=== PATIENT | male | born 1955 | race Caucasian/White ===

== ENCOUNTER → 2016-12-13 | Day surgery (SDC) | payer OTHER ==
[~2016-12-13] MED LIST: ACETAMINOPHEN/HYDROcodone 325 MG/5 MG TAB ONE; AMAR4TAB PO; BACL10TA PO; BUPIVACAINE/EPINEPHRINE 0.5% 50 ML VIAL ONE; COBA1000 PO; GABA600T PO; HYDR50TA3 PO; LACTATED RINGER'S 1000 ML INJ 1,000 ML ONE; LISI-515 PO; MEPERIDINE HCL 25 MG/ML VIAL ONE; METO50TA PO; MIDAZOLAM HCL 2 MG/2 ML VIAL ONE; MORP1TAB24 PO; NOVO7030P2 SQ; OMEP20CA2 PO; ONDANSETRON HCL 4 MG/2 ML VIAL IV PUSH ONE; PROPOFOL 200 MG/20 ML AMP IV ONE; ceFAZolin INJ 1,000 MG VIAL ONE
--- NOTE | 2016-12-14 10:00 | MP ---
cc: BASSEM GEORGES M.D. DATE OF SURGERY 12/13/2016 PREOPERATIVE DIAGNOSIS Right knee medial meniscus tear. POSTOPERATIVE DIAGNOSIS Right knee medial meniscus tear. PROCEDURE Right knee arthroscopic partial medial meniscectomy. ANESTHESIA General SURGEON Bassem Georges MD MANAGER TRANSITION SURGEON Staff INDICATION Junior Ba is a 61-year-old male with debilitating right knee pain. 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 The options of treatment were thoroughly discussed. A detailed informed consent was obtained. No guarantees were offered. PROCEDURE The patient was brought into the operating room and was placed under general anesthetic. The right lower extremity was prepped and draped in the usual sterile fashion. IV antibiotics were given. Time-out was completed. An inferomedial portal was made with Marcaine. A blunt trocar used to introduce the cannula. The first photograph shows significant chondromalacia of the patellofemoral joint. The second photograph shows the ACL which appeared normal. The third photograph shows some minimal inner edge fraying on the lateral meniscus within the normal limit. The third photograph shows the posterior horn of the lateral meniscus. The fifth photograph shows the displaced posterior horn meniscus tear which was flipped into the notch and a probe is pulling it out, as well as chondromalacia on the medial femoral condyle. We proceeded with an arthroscopic partial medial meniscectomy using a combination of basket forceps and arthroscopic shaver. We used the shaver with the blade 90 degrees to the face of the condyle to smooth unstable cartilage and in a similar fashion went to the patellofemoral joint and trimmed and smoothed the cartilage. Repeat diagnostic arthroscopy revealed no loose bodies. Arthroscopic equipment was removed. Marcaine had been injected about the portals. Steri-Strips applied. Sterile dressing applied. The patient was awoken and returned to the recovery room in stable condition. MD MARIS Christina/CARMINE /12:28 PM /9:54 AM
== END | disposition home or self-care (01) ==
LOC: ESDC 07:47
PROVIDERS: ATTEND Orthopaedic Surgery Sports Medicine
DX: S83.241A Other tear of medial meniscus, current injury, right knee, initial encounter (principal); E11.9 Type 2 diabetes mellitus without complications; Z79.4 Long term (current) use of insulin; M94.261 Chondromalacia, right knee
CPT/HCPCS: 01400; 29881; 82948; J0690; J2175; J2250; J2405; J3010; J7120

== ENCOUNTER 2017-12-30 06:25 | Observation (INO) | payer OTHER ==
[2017-12-30] VITALS (7 sets, daily range): BP systolic 120–182; BP diastolic 69–79; PULSE 90–106; RESP 17–20; TEMP 97.7–98.6; O2SAT 92–97
[~2017-12-30] VITALS: Ht 172.7 cm; Wt 116.5 kg
[~2017-12-30 06:25] MED LIST changes: -ACETAMINOPHEN/HYDROcodone 325 MG/5 MG TAB ONE; -BUPIVACAINE/EPINEPHRINE 0.5% 50 ML VIAL ONE; -LACTATED RINGER'S 1000 ML INJ 1,000 ML ONE; -MEPERIDINE HCL 25 MG/ML VIAL ONE; -MIDAZOLAM HCL 2 MG/2 ML VIAL ONE; -MORP1TAB24 PO; -ONDANSETRON HCL 4 MG/2 ML VIAL IV PUSH ONE; -PROPOFOL 200 MG/20 ML AMP IV ONE; -ceFAZolin INJ 1,000 MG VIAL ONE
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
[2017-12-30 07:32] LABS: AUTOMATED NEUTROPHIL # 7.9 TH/MM3 (1.8-7.7); BASOPHIL % 0.3 % (0.0-2.0); EOSINOPHIL # 0.1 TH/MM3 (0-0.4); EOSINOPHIL % 1.1 % (0.0-4.0); HEMATOCRIT 45.8 % (39.0-51.0); HEMOGLOBIN 15.6 GM/DL (13.0-17.0); LYMPH % 9.9 % (9.0-44.0); LYMPHOCYTE # 0.9 TH/MM3 (1.0-4.8); MEAN CELL VOLUME 82.7 FL (80.0-100.0); MEAN CORPUSCULAR HEMOGLOBIN 28.1 PG (27.0-34.0); MEAN PLATELET VOLUME 8.2 FL (7.0-11.0); MONO % 4.8 % (0.0-8.0); MONOCYTE # 0.5 TH/MM3 (0-0.9); NEUT % 83.9 % (16.0-70.0); PLATELET COUNT 223 TH/MM3 (150-450); RED BLOOD COUNT 5.54 MIL/MM3 (4.50-5.90); WHITE BLOOD COUNT 9.4 TH/MM3 (4.0-11.0)
[2017-12-30 07:43] LABS: INTERNATIONAL NORMALIZED RATIO 1.1 RATIO; PROTHROMBIN TIME - PATIENT 10.7 SEC (9.8-11.6)
[2017-12-30 07:59] LABS: ALBUMIN 3.7 GM/DL (3.4-5.0); ALT (GPT) 28 U/L (12-78); AST (GOT) 22 U/L (15-37); BICARBONATE 27.1 MEQ/L (21.0-32.0); BLOOD UREA NITROGEN 24 MG/DL (7-18); CALCIUM 8.9 MG/DL (8.5-10.1); CHLORIDE 104 MEQ/L (98-107); CREATININE 1.13 MG/DL (0.60-1.30); GLOMERULAR FILTRATION RATE 65 ML/MIN (>89); GLUCOSE,RANDOM 137 MG/DL (74-106); MAGNESIUM 1.9 MG/DL (1.5-2.5); SODIUM (NA) 141 MEQ/L (136-145)
--- NOTE | 2017-12-30 08:01 | RADRPT ---
EXAM DATE: 12/30/2017 7:40 AM EDT AGE/SEX: 62 years / Male INDICATIONS: Abdominal pain. CLINICAL DATA: This is the patient's initial encounter. Patient reports that signs and symptoms have been present for 1 day and indicates a pain score of 4/10. MEDICAL/SURGICAL HISTORY: Cardiovascular disease. Gastroesophageal reflux disease. Hypertensi on. Renal disease, kidney stones, diabetes. Lithotripsy. tumor removed from right kidney. RADIATION DOSE: 32.41 CTDI (mGy) ; Patient body habitus COMPARISON: [facility] [place], CT ABDOMEN & PELVIS W/O CONTRAST, 03/13/2016. . TECHNIQUE: Multiple contiguous axial images were obtained through the abdomen. Images were obtained using multiple row detector helical technique. Using dose reduction techniques, radiation dose was ke pt as low as reasonably achievable to obtain optimal diagnostic quality images. FINDINGS: Noncontrast appearance of the liver within normal limits. 3.1 cm hypodensity seen centrally of the sp beto, previously 2.9 cm. No acute splenic abnormality. Pancreas and left adrenal gland within normal limits. Stable 2.2 cm adenoma of the right adrenal gland. Numerous nonobstructing stones scattered throughout both kidneys ranging in size from 3 to 8 mm. Thes e all appear very similar to the prior study. There is no ureteral calculus or hydronephrosis or hydr oureter on either side. No obstruction or acute inflammatory changes are seen of the gastrointestinal tract. No free fluid or free air. No lymphadenopathy. CONCLUSION: 1. Numerous scattered nonobstructing stones of both kidneys without appreciable change. No evidence of acute obstructive uropathy. 2. The nonspecific hypodensity of the spleen has been present for many years and is presumably benig n. It is a couple millimeters larger since 2016. 3. Stable right adrenal adenoma. Electronically signed by: Aaron Fernandez MD 12/30/2017 8:00 AM EDT
[2017-12-30 08:02] LABS: ALKALINE PHOSPHATASE 88 U/L (45-117); TOTAL BILIRUBIN ADULT 0.5 MG/DL (0.2-1.0); TOTAL PROTEIN 7.1 GM/DL (6.4-8.2); TROPONIN I LESS THAN 0.02 NG/ML (0.02-0.05)
--- NOTE | 2017-12-30 08:06 | RADRPT ---
EXAM DATE: 12/30/2017 7:59 AM EDT AGE/SEX: 62 years / Male INDICATIONS: Pelvic pain after moving a pool table last night. CLINICAL DATA: This is the patient's initial encounter. Patient reports that signs and symptoms have been present for 1 day and indicates a pain score of 8/10. MEDICAL/SURGICAL HISTORY: None. None. COMPARISON: No prior [facility] exams available for comparison. FINDINGS: Examination of the pelvis demonstrates no evidence of fracture or dislocation. Osteoarthritic change s noted involving the hips bilaterally. Bony mineralization is normal. There is no widening of the s acroiliac joints. No foreign body is identified. CONCLUSION: Bilateral hip osteoarthritis. No acute abnormality. Electronically signed by: Haja Long MD 12/30/2017 8:04 AM EDT
--- NOTE | 2017-12-30 08:15 | RADRPT ---
EXAM DATE: 12/30/2017 7:48 AM EDT AGE/SEX: 62 years / Male INDICATIONS: Lower back pain, osteomyelitis. CLINICAL DATA: This is the patient's initial encounter. Patient reports that signs and symptoms have been present for 1 day and indicates a pain score of 2/10. MEDICAL/SURGICAL HISTORY: Cardiovascular disease. Hypertension. Gastroesophageal reflux disease. Renal disease, kidney stones, diabetes. Lithotripsy. Tumor removed from right kidney. RADIATION DOSE: . CTDI (mGy) ; Reconstructed from previous dataset, no dose COMPARISON: No prior [facility] exams available for comparison. TECHNIQUE: Contiguous axial images were acquired with a multirow detector CT scanner without contras t. Multiplanar reconstructions in the sagittal and coronal plane were also performed. Using automate d exposure control and adjustment of the mA and/or kV according to patient size, radiation dose was k ept as low as reasonably achievable to obtain optimal diagnostic quality images. FINDINGS: Vertebrae: There is a mildly depressed fracture of the right lateral aspect of the L1 vertebral body . Fracture line also appears to extend through the posterior cortex without significant displacement or retropulsion. There is mild height loss of the right aspect of the L1 vertebral body. Remaining ve rtebral body heights are within normal limits. Alignment: No anterolisthesis or retrolisthesis. T12-L1: No disc herniation, canal stenosis, or neural foraminal stenosis. The fractures of the poste rior cortex is minimally displaced but no significant retropulsion or canal narrowing is present. The re are endplate osteophytes anteriorly L1-L2: No disc herniation, canal stenosis, or neural foraminal stenosis. L2-L3: There is a mild diffuse disc bulge. No spinal canal stenosis or neural foraminal stenosis is visualized. L3-L4: No disc herniation, canal stenosis, or neural foraminal stenosis. There is facet hypertrophy bilaterally with endplate osteophytes anteriorly. L4-L5: Decreased disc height with a diffuse disc bulge and mild facet hypertrophy. No spinal canal s tenosis or neural foraminal stenosis is present. L5-S1: Decreased disc height with endplate osteophytes anteriorly and a diffuse disc bulge. There is moderate facet hypertrophy. No spinal canal stenosis or significant neural foraminal narrowing is pr esent. There is endplate sclerosis at L1. Other: The visualized surrounding structures demonstrate no acute abnormality. There are multiple non obstructing right renal stones measuring up to 7 mm. Atherosclerotic disease is present within the ab dominal aorta. CONCLUSION: 1. There are no findings identified to indicate osteomyelitis, as questioned. 2. However, there is a fracture of the right lateral and posterior aspect of the L1 vertebral body. It is associated with mild height loss and the appearance could be an acute fracture. Suggest correla ting for pain in this location. MRI could confirm that it is acute, if clinically needed. There is no significant retropulsion or spinal canal narrowing at this level. 3. Otherwise, there are mild degenerative changes at multiple levels, as above. No spinal canal sten osis is seen. Electronically signed by: Aaron José MD 12/30/2017 8:13 AM EDT
--- NOTE | 2017-12-30 09:27 | EKG ---
Date Performed: 12/30/2017 Time Performed: 07:14:54 PTAGE: 62 years EKG: Sinus rhythm RIGHT BUNDLE BRANCH BLOCK ABNORMAL ECG PREVIOUS TRACING : 11/21/2014 21.43 Since the previous tracing, no significant change noted DOCTOR: Frank Lawton Interpretating Date/Time 12/30/2017 09:26:35
[2017-12-30 09:35] LABS: BILIRUBIN, URINE NEG (NEG); BLOOD, URINE NEG (NEG); GLUCOSE,URINE NEG (NEG); KETONE, URINE NEG (NEG); MUCUS URINE FEW /lpf (OCC); NITRITE,URINE NEG (NEG); URINE COLOR YELLOW (YELLW/STRAW); URINE LEUKOCYTE ESTERASE NEG (NEG)
[2017-12-30] MEDS ORDERED: POTASSIUM CHLORIDE 20 MEQ CONTROLLED RELEASE TAB PO ONE (10:30)
--- NOTE | 2017-12-30 11:04 | PD ---
Physical Exam Narrative Received signout from Dr. Berger to follow-up on labs and imaging. Patient is resting comfortably in the bed with stable vitals. Data Data Last Documented VS Vital Signs Date Time Temp Pulse Resp B/P (MAP) Pulse Ox O2 Delivery O2 Flow Rate FiO2 12/30/17 12:04 93 18 152/78 (102) 97 Room Air 12/30/17 06:37 98.1 Orders Orders Electrocardiogram (12/30/17 07:04) Complete Blood Count With Diff (12/30/17 07:04) Comprehensive Metabolic Panel (12/30/17 07:04) Troponin I (12/30/17 07:04) Prothrombin Time / Inr (Pt) (12/30/17 07:04) Act Partial Throm Time (Ptt) (12/30/17 07:04) C-Reactive Protein (Crp) (12/30/17 07:04) Lipase (12/30/17 07:04) Urinalysis - C+S If Indicated (12/30/17 07:04) Westergren Sedimentation Rate (12/30/17 07:04) Magnesium (Mg) (12/30/17 07:04) Pelvis, Ap Only (Routine) (12/30/17 07:04) Iv Access Insert/Monitor (12/30/17 07:04) Ecg Monitoring (12/30/17 07:04) Oximetry (12/30/17 07:04) Ct Lumb Spine W/O Contrast (12/30/17 ) Ct Abd/Pel W/O Iv Contrast (12/30/17 07:15) Potassium Chloride (Kcl) (12/30/17 10:30) Morphine Inj (Morphine Inj) (12/30/17 11:15) Ondansetron Odt (Zofran Odt) (12/30/17 12:15) Mri L Spine W/O Contrast (12/30/17 12:14) Electrocardiogram (12/30/17 12:16) Ckmb (Isoenzyme) Profile (12/30/17 12:16) Troponin I (12/30/17 12:16) Chest, Single Ap (12/30/17 12:16) Admit Order (Ed Use Only) (12/30/17 12:39) Aspirin (Aspirin) (12/30/17 12:45) CKMB (12/30/17 12:26) CKMB% (12/30/17 12:26) Labs Laboratory Tests Test 12/30/17 07:23 12/30/17 09:02 12/30/17 12:26 White Blood Count 9.4 TH/MM3 Red Blood Count 5.54 MIL/MM3 Hemoglobin 15.6 GM/DL Hematocrit 45.8 % Mean Corpuscular Volume 82.7 FL Mean Corpuscular Hemoglobin 28.1 PG Mean Corpuscular Hemoglobin Concent 34.0 % Red Cell Distribution Width 14.0 % Platelet Count 223 TH/MM3 Mean Platelet Volume 8.2 FL Neutrophils (%) (Auto) 83.9 % Lymphocytes (%) (Auto) 9.9 % Monocytes (%) (Auto) 4.8 % Eosinophils (%) (Auto) 1.1 % Basophils (%) (Auto) 0.3 % Neutrophils # (Auto) 7.9 TH/MM3 Lymphocytes # (Auto) 0.9 TH/MM3 Monocytes # (Auto) 0.5 TH/MM3 Eosinophils # (Auto) 0.1 TH/MM3 Basophils # (Auto) 0.0 TH/MM3 CBC Comment DIFF FINAL Differential Comment Erythrocyte Sedimentation Rate 12 mm/hr Prothrombin Time 10.7 SEC Prothromb Time International Ratio 1.1 RATIO Activated Partial Thromboplast Time 26.5 SEC Blood Urea Nitrogen 24 MG/DL Creatinine 1.13 MG/DL Random Glucose 137 MG/DL Total Protein 7.1 GM/DL Albumin 3.7 GM/DL Calcium Level 8.9 MG/DL Magnesium Level 1.9 MG/DL Alkaline Phosphatase 88 U/L Aspartate Amino Transf (AST/SGOT) 22 U/L Alanine Aminotransferase (ALT/SGPT) 28 U/L Total Bilirubin 0.5 MG/DL Sodium Level 141 MEQ/L Potassium Level 3.1 MEQ/L Chloride Level 104 MEQ/L Carbon Dioxide Level 27.1 MEQ/L Anion Gap 10 MEQ/L Estimat Glomerular Filtration Rate 65 ML/MIN Troponin I LESS THAN 0.02 NG/ML LESS THAN 0.02 NG/ML C-Reactive Protein 0.80 MG/DL Lipase 142 U/L Urine Color YELLOW Urine Turbidity CLEAR Urine pH 6.0 Urine Specific [place] 1.018 Urine Protein NEG mg/dL Urine Glucose (UA) NEG mg/dL Urine Ketones NEG mg/dL Urine Occult Blood NEG Urine Nitrite NEG Urine Bilirubin NEG Urine Urobilinogen LESS THAN 2.0 MG/DL Urine Leukocyte Esterase NEG Urine RBC LESS THAN 1 /hpf Urine WBC LESS THAN 1 /hpf Urine Mucus FEW /lpf Microscopic Urinalysis Comment CULT NOT INDICATED Total Creatine Kinase 792 U/L Creatine Kinase MB 2.2 NG/ML Creatine Kinase MB % 0.3 % [facility] Supervised Visit with BJORN: No Interpretation(s) FINDINGS: A single AP view of the chest demonstrates the lungs to be symmetrically aerated without evidence of mass, infiltrate or effusion. The cardiomediastinal contours are unremarkable. Osseous structures are intact. CONCLUSION: No acute cardiopulmonary process. Labs: CRP and glucose elevated, potassium decreased Last Impressions Abdomen/Pelvis CT 12/30/17 0715 Signed Impressions: CONCLUSION: 1. Numerous scattered nonobstructing stones of both kidneys without appreciabl e change. No evidence of acute obstructive uropathy. 2. The nonspecific hypodensity of the spleen has been present for many years a nd is presumably benign. It is a couple millimeters larger since 2016. 3. Stable right adrenal adenoma. Pelvis X-Ray 12/30/17 0704 Signed Impressions: CONCLUSION: Bilateral hip osteoarthritis. No acute abnormality. Lumbar Spine CT 12/30/17 0000 Signed Impressions: CONCLUSION: 1. There are no findings identified to indicate osteomyelitis, as questioned. 2. However, there is a fracture of the right lateral and posterior aspect of t he L1 vertebral body. It is associated with mild height loss and the appearance could be an acute fracture. Suggest correlating for pain in this location. MRI could confirm that it is acute, if clinically needed. There is no significant retropulsion or spinal canal narrowing at this level. 3. Otherwise, there are mild degenerative changes at multiple levels, as above . No spinal canal stenosis is seen. Narrative Course 1106: Patient requesting pain medication, will give 4 mg IV morphine. 1130: Patient felt nauseated and given 4 mg Zofran ODT. Spoke to the nurse for neurosurgery personnel technician, who advised that the neurosurgeon personnel technician once the patient admitted for observation and MRI L-spine without contrast. That has been ordered and the patient has been admitted. While the mid-level that works with the neurosurgeon was evaluated the patient he complained of chest pain. He was given 325 mg p.o. aspirin, repeat EKG was done which shows sinus rhythm rate 95 right bundle branch block, Q-wave in lead III T-wave inversion in V1 V2 V3. When compared to earlier EKG the bundle branch block and the Q-wave in lead III was present as well as T-wave inversion in V1. Cardiac enzymes are pending the admit team will follow. Discussed with admit Dr. Dr. Martin, advised that they will trend his enzymes, follow-up on the MRI and cardiac enzymes, and was okay with my given aspirin 325 mg p.o. Physician Communication Physician Communication 1104: Spoke to Aaron, the nurse for the on-call neurosurgeon. Neurosurgeon is in surgery but should be finished shortly awaiting his call. Diagnosis Primary Impression: Back pain Qualified Codes: M54.5 - Low back pain Additional Impressions: Flank pain Chest pain Qualified Codes: R07.9 - Chest pain, unspecified Hypokalemia Admitting Information Admitting Physician Requests: Observation Condition: Stable Karissa Heath MD Dec 30, 2017 11:04
[2017-12-30] MEDS ORDERED: MORPHINE SULFATE 4 MG/ML INJ IV PUSH ONE (11:15)
[2017-12-30] MEDS ORDERED: GABA300C5 PO (11:41)
[2017-12-30] MEDS ORDERED: TOBRSUS9 RIGHT EYE (11:41)
[2017-12-30] MEDS ORDERED: ONDANSETRON ODT 4 MG TAB PO ONE (12:15)
[2017-12-30] MEDS ORDERED: SODIUM CHLORIDE 0.9% FLUSH 10 ML FLUSH IV FLUSH PRN (12:45)
[2017-12-30] MEDS ORDERED: ONDANSETRON ODT 4 MG TAB PO PRN (12:45)
[2017-12-30] MEDS ORDERED: MAGNESIUM HYDROXIDE SUSP 30 ML CUP PO PRN (12:45)
[2017-12-30] MEDS ORDERED: ASPIRIN 325 MG TAB PO ONE (12:45)
[2017-12-30] MEDS ORDERED: ACETAMINOPHEN 325 MG TAB PO PRN (12:45)
[2017-12-30] MEDS ORDERED: NALOXONE HCL 0.4 MG/ML AMP IV PUSH PRN (12:45)
[2017-12-30] MEDS ORDERED: GLUCAGON 1 MG/ML VIAL OTHER PRN (13:00)
[2017-12-30] MEDS ORDERED: DEXTROSE 50% IN WATER 50 ML VIAL(D50) IV PUSH PRN (13:00)
--- NOTE | 2017-12-30 13:00 | RADRPT ---
EXAM DATE: 12/30/2017 12:57 PM EDT AGE/SEX: 62 years / Male INDICATIONS: Chest pain. CLINICAL DATA: This is the patient's initial encounter. Patient reports that signs and symptoms have been present for 1 day and indicates a pain score of 10/10. MEDICAL/SURGICAL HISTORY: Diabetes mellitus type II. Hypertension. None. COMPARISON: No prior exams available for comparison. FINDINGS: A single AP view of the chest demonstrates the lungs to be symmetrically aerated without evidence of mass, infiltrate or effusion. The cardiomediastinal contours are unremarkable. Osseous structures a re intact. CONCLUSION: No acute cardiopulmonary process. Electronically signed by: Aaron Meza MD 12/30/2017 12:59 PM EDT
[2017-12-30 13:13] LABS: TROPONIN I LESS THAN 0.02 NG/ML (0.02-0.05)
[2017-12-30] MEDS: GABAPENTIN 300 MG CAP PO SCH ×3 (13:15→22:12)
--- NOTE | 2017-12-30 14:01 | HHI.HP ---
HPI Service [facility] Hospitalists Primary Care Physician Dr. Zenon Bocanegra Admission Diagnosis L spine fracture, chest pain Chief Complaint: Back pain Travel History International Travel<30 Days: No Contact w/Intl Traveler <30 Da: No Traveled to Known Affected Are: No History of Present Illness Mr. Ba is a 62 y/o male with Diabetes mellitus, PALOMA, HTN, hx of nephrolithiasis and chronic back pain. He presented to the ED at [facility] [place] with a history of right-sided low back pain that he reports began at approximately 4: 30AM on 12/29/17. The patient reports that he has a history of chronic back pain and has been receiving epidural steroid injections and is also prescribed tramadol which he usually takes 3 times per day. He reports that he last received an epidural steroid injection on 12/04/17 and follows with pain management for this. He reports that yesterday he helped someone move a pool table and pushed it across the floor. He did not have pain initially after helping move the pool table and felt normal yesterday evening. This morning around 4:30AM he got up to go to the bathroom at which time he had sudden onset of severe right-sided back pain. He reports that the pain is sharp and is located in the right flank/right buttock area. It is exacerbated by any movement. He denies having any radiation of the pain down into the scrotum or down into his legs. No reported weakness or paresthesias of his legs. The patient reports last taking tramadol for his pain at 4:30 AM yesterday but it has not helped. In the ED the pt underwent evaluation with CT of the lumbar spine which revealed a fracture of the right lateral and posterior aspect of the L1 vertebral body, it is associated with mild height loss and the appearance could be an acute fracture. Pt was evaluated by Neurosurgery in the ED and recommended observation admission for evaluation with MRI and pain management. Pt reports that around 2 weeks ago he had [place] tri[place] over [place] curb. He hit his head and scraped his knees but there was no LOC. He denies any increased back pain after this fall. While in the ED this afternoon he complained of some mild chest discomfort, which lasted 5-10 minutes and resolved on its own. Pt felt like this began after receiving Zofran for nausea that he had been given. He denies any associated Vomiting, SOB or palpitations. He has had two troponin I check which were negative. His total CK was elevated at 792 and CK-MB is 2.2. Serial EKGs are ordered. Review of Systems Constitutional: DENIES: Fever, Chills Eyes: DENIES: Vision loss Ears, nose, mouth, throat: DENIES: Hearing loss Respiratory: DENIES: Cough, Shortness of breath Cardiovascular: COMPLAINS OF: Chest pain, DENIES: Lower Extremity Edema Gastrointestinal: DENIES: Abdominal pain, Diarrhea, GERD, Nausea, Vomiting Genitourinary: DENIES: Hematuria Musculoskeletal: COMPLAINS OF: Back pain Integumentary: DENIES: Rash Neurologic: DENIES: Headache, Localized weakness, Paresthesias Psychiatric: DENIES: Confusion Past Family Social History Past Medical History Diabetes mellitus Chronic back pain/DDD Obstructive sleep apnea Hyperlipidemia Hypertension GERD Hx of kidney stones Gout Osteoarthritis History of skin cancer Depression Past Surgical History Laparoscopic cholecystectomy Cataract surgery around [address] Hogan Arthrocentesis Umbilical hernia repair Percutaneous nephrolithotomy Shockwave lithotripsy History of ureteroscopy Reported Medications -Omeprazole 20 Mg PO DAILY -Amaryl 4 Mg PO BID -Novolin 70-30 Inj 15 Units SQ BID (?22units in AM and 30 units in PM) -Gabapentin 300 Mg PO QID -Metoprolol Tartrate 50 Mg PO BID -Hydrochlorothiazide 50 Mg PO DAILY -Lisinopril 20 Mg PO DAILY --Tobramycin-Dexamethasone 0.3-0.1% i drop in the right eye QID x 1 week, TID x 1 week, BID x 1 week, daily x 1 week, then stop (started on 12/24/17) ?Nortriptyline 25 Mg PO BID ?ASA 81 Mg PO DAILY ?Baclofen 10 Mg PO DAILY PRN Allergies: Coded Allergies: No Known Allergies (Verified Allergy, Unknown, 12/30/17) Family History Father: at 83, had diabetes Mother: at 80, no known chronic medical conditions Social History Pt with hx of tobacco use He is on disability, previously worked in auto body repair Disability due to severe degenerative joint disease in back L2-4 Physical Exam Vital Signs Vital Signs Date Time Temp Pulse Resp B/P (MAP) Pulse Ox O2 Delivery O2 Flow Rate FiO2 12/30/17 12:04 93 18 152/78 (102) 97 Room Air 12/30/17 10:30 98 18 182/79 (113) 92 Room Air 12/30/17 07:08 90 18 92 Room Air 12/30/17 06:37 98.1 93 18 149/74 (99) 97 Room Air Physical Exam GENERAL: This is a well-nourished, well-developed patient, in no apparent distress. SKIN: No rashes, ecchymoses or lesions. Cool and dry. HEAD: Atraumatic. Normocephalic. No temporal or scalp tenderness. EYES: Pupils equal round and reactive. Extraocular motions intact. No scleral icterus. No injection or drainage. ENT: Nose without bleeding, purulent drainage or septal hematoma. Throat without erythema, tonsillar hypertrophy or exudate. Uvula midline. Airway patent. NECK: Trachea midline. No JVD or lymphadenopathy. Supple, nontender, no meningeal signs. CARDIOVASCULAR: Regular rate and rhythm without murmurs, gallops, or rubs. RESPIRATORY: Clear to auscultation. Breath sounds equal bilaterally. No wheezes , rales, or rhonchi. GASTROINTESTINAL: Abdomen soft, non-tender, nondistended. No hepato-splenomegaly , or palpable masses. No guarding. MUSCULOSKELETAL: Extremities without clubbing, cyanosis, or edema. No joint tenderness, effusion, or edema noted. No calf tenderness. Negative Homans sign bilaterally. NEUROLOGICAL: Awake and alert. Cranial nerves II through XII intact. Motor and sensory grossly within normal limits. Five out of 5 muscle strength in all muscle groups. Normal speech. Laboratory Laboratory Tests Test 12/30/17 07:23 12/30/17 09:02 12/30/17 12:26 White Blood Count 9.4 Red Blood Count 5.54 Hemoglobin 15.6 Hematocrit 45.8 Mean Corpuscular Volume 82.7 Mean Corpuscular Hemoglobin 28.1 Mean Corpuscular Hemoglobin Concent 34.0 Red Cell Distribution Width 14.0 Platelet Count 223 Mean Platelet Volume 8.2 Neutrophils (%) (Auto) 83.9 Lymphocytes (%) (Auto) 9.9 Monocytes (%) (Auto) 4.8 Eosinophils (%) (Auto) 1.1 Basophils (%) (Auto) 0.3 Neutrophils # (Auto) 7.9 Lymphocytes # (Auto) 0.9 Monocytes # (Auto) 0.5 Eosinophils # (Auto) 0.1 Basophils # (Auto) 0.0 CBC Comment DIFF FINAL Differential Comment Erythrocyte Sedimentation Rate 12 Prothrombin Time 10.7 Prothromb Time International Ratio 1.1 Activated Partial Thromboplast Time 26.5 Blood Urea Nitrogen 24 Creatinine 1.13 Random Glucose 137 Total Protein 7.1 Albumin 3.7 Calcium Level 8.9 Magnesium Level 1.9 Alkaline Phosphatase 88 Aspartate Amino Transf (AST/SGOT) 22 Alanine Aminotransferase (ALT/SGPT) 28 Total Bilirubin 0.5 Sodium Level 141 Potassium Level 3.1 Chloride Level 104 Carbon Dioxide Level 27.1 Anion Gap 10 Estimat Glomerular Filtration Rate 65 Troponin I LESS THAN 0.02 LESS THAN 0.02 C-Reactive Protein 0.80 Lipase 142 Urine Color YELLOW Urine Turbidity CLEAR Urine pH 6.0 Urine Specific [place] 1.018 Urine Protein NEG Urine Glucose (UA) NEG Urine Ketones NEG Urine Occult Blood NEG Urine Nitrite NEG Urine Bilirubin NEG Urine Urobilinogen LESS THAN 2.0 Urine Leukocyte Esterase NEG Urine RBC LESS THAN 1 Urine WBC LESS THAN 1 Urine Mucus FEW Microscopic Urinalysis Comment CULT NOT INDICATED Total Creatine Kinase 792 Creatine Kinase MB 2.2 Creatine Kinase MB % 0.3 Result Diagram: 12/30/17 0723 12/30/17 0723 Imaging Last Impressions Chest X-Ray 12/30/17 1216 Signed Impressions: CONCLUSION: No acute cardiopulmonary process. Abdomen/Pelvis CT 12/30/17 0715 Signed Impressions: CONCLUSION: 1. Numerous scattered nonobstructing stones of both kidneys without appreciabl e change. No evidence of acute obstructive uropathy. 2. The nonspecific hypodensity of the spleen has been present for many years a nd is presumably benign. It is a couple millimeters larger since 2016. 3. Stable right adrenal adenoma. Pelvis X-Ray 12/30/17 0704 Signed Impressions: CONCLUSION: Bilateral hip osteoarthritis. No acute abnormality. Lumbar Spine CT 12/30/17 0000 Signed Impressions: CONCLUSION: 1. There are no findings identified to indicate osteomyelitis, as questioned. 2. However, there is a fracture of the right lateral and posterior aspect of t he L1 vertebral body. It is associated with mild height loss and the appearance could be an acute fracture. Suggest correlating for pain in this location. MRI could confirm that it is acute, if clinically needed. There is no significant retropulsion or spinal canal narrowing at this level. 3. Otherwise, there are mild degenerative changes at multiple levels, as above . No spinal canal stenosis is seen. Caprini VTE Risk Assessment Caprini VTE Risk Assessment: Mod/High Risk (score >= 2) Caprini Risk Assessment Model Point Value = 1 Point Value = 2 Point Value = 3 Point Value = 5 Age 41-60 Minor surgery BMI > 25 kg/m2 Swollen legs Varicose veins or History of unexplained or recurrent spontaneous Oral contraceptives or hormone replacement Sepsis (< 1 month) Serious lung disease, including pneumonia (< 1 month) Abnormal pulmonary function Acute myocardial infarction Congestive heart failure (< 1 month) History of inflammatory bowel disease Medical patient at bed rest Age 61-74 Arthroscopic surgery Major open surgery (> 45 min) Laparoscopic surgery (> 45 min) Malignancy Confined to bed (> 72 hours) Immobilizing plaster cast Central venous access Age >= 75 History of VTE Family history of VTE Factor V Leiden Prothrombin [id number] Lupus anticoagulant Anticardiolipin antibodies Elevated serum homocysteine Heparin-induced thrombocytopenia Other congenital or acquired thrombophilia Stroke (< 1 month) Elective arthroplasty Hip, pelvis, or leg fracture Acute spinal cord injury (< 1 month) Prophylaxis Regimen Total Risk Factor Score Risk Level Prophylaxis Regimen 0-1 Low Early ambulation 2 Moderate Order ONE of the following: *Sequential Compression Device (SCD) *Heparin 5000 units SQ BID 3-4 Higher Order ONE of the following medications: *Heparin 5000 units SQ TID *Enoxaparin/Lovenox 40 mg SQ daily (WT < 150 kg, CrCl > 30 mL/min) *Enoxaparin/Lovenox 30 mg SQ daily (WT < 150 kg, CrCl > 10-29 mL/min) *Enoxaparin/Lovenox 30 mg SQ BID (WT < 150 kg, CrCl > 30 mL/min) AND/OR *Sequential Compression Device (SCD) 5 or more Highest Order ONE of the following medications: *Heparin 5000 units SQ TID (Preferred with Epidurals) *Enoxaparin/Lovenox 40 mg SQ daily (WT < 150 kg, CrCl > 30 mL/min) *Enoxaparin/Lovenox 30 mg SQ daily (WT < 150 kg, CrCl > 10-29 mL/min) *Enoxaparin/Lovenox 30 mg SQ BID (WT < 150 kg, CrCl > 30 mL/min) AND *Sequential Compression Device (SCD) Assessment and Plan Problem List: (1) Fracture of L1 vertebra ICD Codes: S32.019A - Unspecified fracture of first lumbar vertebra, initial encounter for closed fracture Plan: - Pt is a 62 y/o male with Diabetes mellitus, PALOMA, HTN, hx of nephrolithiasis and chronic back pain. - He presented to the ED at [facility] [place] with a history of right-sided low back pain that he reports began at approximately 4:30 AM on 12/30/17. He reports that yesterday he helped someone move a pool table and pushed it across the floor. He did not have pain initially after helping move the pool table or yesterday evening. Around 4:30AM this morning he got up to go to the bathroom at which time he had sudden onset of severe right-sided back pain. He reports that the pain is sharp and is located in the right flank/right buttock area. It is exacerbated by any movement. - In the ED the pt underwent evaluation with CT of the lumbar spine which revealed a fracture of the right lateral and posterior aspect of the L1 vertebral body, it is associated with mild height loss and the appearance could be an acute fracture. - Pt was evaluated by Neurosurgery in the ED and recommended observation admission for evaluation with MRI and pain management. - MRI lumbar spine is ordered - Neurosurgery consulted - Pain control PRN - PT evaluation tomorrow - Supportive care - DVT prophylaxis (2) Chest pain ICD Codes: R07.9 - Chest pain, unspecified Status: Acute Plan: - While in the ED this afternoon he complained of some mild chest discomfort. - He has had two troponin I check which were negative. - His total CK was elevated at 792 and CK-MB is 2.2. - Serial EKGs are ordered. - Pt given ASA - Trend CE and serial EKGs (3) Type 2 diabetes mellitus with peripheral neuropathy ICD Codes: E11.42 - Type 2 diabetes mellitus with peripheral neuropathy Status: Chronic Plan: - Decreased home dose of Amaryl to 2mg po BID - NovoLog SSI - Accu checks (4) HTN (hypertension) ICD Codes: I10 - Hypertension Status: Chronic Plan: - Home meds continued - Monitor Assessment and Plan Patient examined. Assessment and plan formulated with Harleen Raymond PA-C. I agree with the above. Pt presented to the ER with acute LBP. CT lumbar spine (12/30/17) showed L1 Vertebral Compression Fracture. Case d/w Dr. Mota (12/30/17). Await results of MRI lumbar spine. Pt NPO after MN for possible kyphoplasty 12/31/17. Pt written for prn pain medication. Problem Qualifiers (1) Chest pain: Qualified Codes: R07.9 - Chest pain, unspecified Mary Morejon Dec 30, 2017 14:01 Jose Francisco Martin DO Dec 30, 2017 15:24
[2017-12-30] MEDS ORDERED: TRAM50TA PO (15:16)
[2017-12-30] MEDS: ACETAMINOPHEN/HYDROcodone 325 MG/7.5 MG TAB PO PRN (15:55)
--- NOTE | 2017-12-30 16:28 | PD.CONS ---
(Shahram Mota MD) HPI Consult Requested By Primary Care Physician Unknown (Shahram Mota MD) Service Neurosurgery Consult Requested By ED Physician Reason for Consult L1 compression fracture History of Present Illness Mr. Ba is a 62-year-old male who presents to [facility] ED with complaints of lumbar pain. Mr. Ba reports he suffers from chronic degenerative disc disease, chronic low back pain and is being managed by a pain specialist with epidural steroid injections. Unfortunately he was pushing a heavy furniture and developed acute low back pain which he reports is different from his chronic pain. The pain is located in the upper lumbar region. He reports the pain increases when he tries to move. He denies any radiating pain in his legs , focal weakness, bowel or bladder incontinence, fevers or chills. A CT of the lumbar spine shows an L1 compression fracture. When seen in the ED he is currently complaining of midsternal chest pain. ED physician aware and has ordered an EKG. Neurosurgical evaluation is requested. (Stefany Booker) Review of Systems Constitutional: DENIES: Fever, Chills Eyes: DENIES: Diplopia, Vision loss, Double Vision Cardiovascular: COMPLAINS OF: Chest pain, DENIES: Syncope Gastrointestinal: COMPLAINS OF: Nausea, DENIES: Vomiting Genitourinary: DENIES: Urinary incontinence Musculoskeletal: COMPLAINS OF: Stiffness, Back pain Neurologic: DENIES: Localized weakness, Paresthesias Psychiatric: DENIES: Hallucinations (Stefany Booker) Past Family Social History Allergies: Coded Allergies: No Known Allergies (Verified Allergy, Unknown, 12/30/17) Past Medical History Diabetes mellitus Hypertension Hyperlipidemia Chronic low back pain Obstructive sleep apnea GERD Hx of kidney stones Gout Osteoarthritis History of skin cancer Depression Past Surgical History Cholecystectomy Cataract surgery Umbilical hernia repair Nephrolithotomy Lithotripsy Reported Medications Reviewed in EMR Active Ordered Medications Current Medications Medications (Trade) Dose Ordered Sig/Edith Route PRN Reason Start Time Stop Time Status Last Admin Dose Admin Sodium Chloride (NS Flush) 2 ml UNSCH PRN IV FLUSH FLUSH AFTER USING IV ACCESS 12/30/17 12:45 Sodium Chloride (NS Flush) 2 ml BID IV FLUSH 12/30/17 21:00 Acetaminophen (Tylenol) 650 mg Q4H PRN PO TEMP > 100.4 12/30/17 12:45 Ondansetron HCl (Zofran Odt) 4 mg Q6H PRN PO NAUSEA OR VOMITING 12/30/17 12:45 Naloxone HCl (Narcan Inj) 0.4 mg UNSCH PRN IV PUSH SEE LABEL COMMENTS 12/30/17 12:45 Magnesium Hydroxide (Milk Of Magnlandy Liq) 30 ml Q12H PRN PO Mild constipation 12/30/17 12:45 Insulin Aspart (NovoLOG SUPPLEMENTAL SCALE) 1 ACHS SLIDING SCALE SQ 12/30/17 17:00 Aspirin (Aspirin) 325 mg DAILY PO 12/31/17 09:00 Gabapentin (Neurontin) 300 mg QID PO 12/30/17 13:00 12/30/17 13:15 Hydrochlorothiazide (Hydrodiuril) 50 mg DAILY PO 12/31/17 09:00 Lisinopril (Prinivil) 20 mg DAILY PO 12/31/17 09:00 Metoprolol Tartrate (Lopressor) 50 mg BID PO 12/30/17 21:00 Pantoprazole Sodium (Protonix) 20 mg DAILY PO 12/31/17 09:00 Glimepiride (Amaryl) 2 mg BIDAC PO 12/30/17 16:00 Dextrose (D50w (Vial) Inj) 50 ml UNSCH PRN IV PUSH HYPOGLYCEMIA - SEE COMMENTS 12/30/17 13:00 Glucagon (Glucagon Inj) 1 mg UNSCH PRN OTHER HYPOGLYCEMIA-SEE COMMENTS 12/30/17 13:00 Tramadol HCl (Ultram) 50 mg Q6HR PO 12/30/17 18:00 Acetaminophen/ Hydrocodone Bitart ([place] 7.5-325 Mg) 1 tab Q4H PRN PO pain 2-10 12/30/17 15:15 12/30/17 15:55 Family History Reviewed, does not contribute to his current problem Social History History of tobacco use. Denies illicit drug or etoh abuse. (Stefany Booker) Physical Exam Vital Signs Vital Signs Date Time Temp Pulse Resp B/P (MAP) Pulse Ox O2 Delivery O2 Flow Rate FiO2 12/30/17 14:57 106 12/30/17 13:52 12/30/17 12:04 93 18 152/78 (102) 97 Room Air 12/30/17 10:30 98 18 182/79 (113) 92 Room Air 12/30/17 07:08 90 18 92 Room Air 12/30/17 06:37 98.1 93 18 149/74 (99) 97 Room Air Physical Exam Mr Ba is alert, awake and oriented to time, place and person. Speech is fluent. Cranial nerve examination: pupils to be equal, round and reactive to light. Extra-ocular movements are intact. Facial motor and sensory function are normal and symmetrical. Gross hearing appears intact. Sternocleidomastoid and trapezius muscles are symmetrical. Other cranial nerves are intact. Neck is soft and supple with a good range of motion without pain. Muscle strength is normal in all muscle groups of both upper and lower extremities. Sensory examination is intact to light touch and pin prick in both the upper and lower extremities. Deep tendon reflexes are symmetrical in both upper and lower extremities. There is a bilateral plantar flexion response. Cerebellar examination is unremarkable, without deficits. Lungs are clear Heart regular rhythm and rate Skin warm and dry Laboratory Laboratory Tests Test 12/30/17 07:23 12/30/17 09:02 12/30/17 12:26 White Blood Count 9.4 Red Blood Count 5.54 Hemoglobin 15.6 Hematocrit 45.8 Mean Corpuscular Volume 82.7 Mean Corpuscular Hemoglobin 28.1 Mean Corpuscular Hemoglobin Concent 34.0 Red Cell Distribution Width 14.0 Platelet Count 223 Mean Platelet Volume 8.2 Neutrophils (%) (Auto) 83.9 Lymphocytes (%) (Auto) 9.9 Monocytes (%) (Auto) 4.8 Eosinophils (%) (Auto) 1.1 Basophils (%) (Auto) 0.3 Neutrophils # (Auto) 7.9 Lymphocytes # (Auto) 0.9 Monocytes # (Auto) 0.5 Eosinophils # (Auto) 0.1 Basophils # (Auto) 0.0 CBC Comment DIFF FINAL Differential Comment Erythrocyte Sedimentation Rate 12 Prothrombin Time 10.7 Prothromb Time International Ratio 1.1 Activated Partial Thromboplast Time 26.5 Blood Urea Nitrogen 24 Creatinine 1.13 Random Glucose 137 Total Protein 7.1 Albumin 3.7 Calcium Level 8.9 Magnesium Level 1.9 Alkaline Phosphatase 88 Aspartate Amino Transf (AST/SGOT) 22 Alanine Aminotransferase (ALT/SGPT) 28 Total Bilirubin 0.5 Sodium Level 141 Potassium Level 3.1 Chloride Level 104 Carbon Dioxide Level 27.1 Anion Gap 10 Estimat Glomerular Filtration Rate 65 Troponin I LESS THAN 0.02 LESS THAN 0.02 C-Reactive Protein 0.80 Lipase 142 Urine Color YELLOW Urine Turbidity CLEAR Urine pH 6.0 Urine Specific [place] 1.018 Urine Protein NEG Urine Glucose (UA) NEG Urine Ketones NEG Urine Occult Blood NEG Urine Nitrite NEG Urine Bilirubin NEG Urine Urobilinogen LESS THAN 2.0 Urine Leukocyte Esterase NEG Urine RBC LESS THAN 1 Urine WBC LESS THAN 1 Urine Mucus FEW Microscopic Urinalysis Comment CULT NOT INDICATED Total Creatine Kinase 792 Creatine Kinase MB 2.2 Creatine Kinase MB % 0.3 (Shahram Mota MD) Result Diagram: 12/30/1772212/30/17722 Imaging Last Impressions Chest X-Ray 12/30/171215 Signed Impressions: CONCLUSION: No acute cardiopulmonary process. Abdomen/Pelvis CT 12/30/17714 Signed Impressions: CONCLUSION: 1. Numerous scattered nonobstructing stones of both kidneys without appreciabl e change. No evidence of acute obstructive uropathy. 2. The nonspecific hypodensity of the spleen has been present for many years a nd is presumably benign. It is a couple millimeters larger since 2016. 3. Stable right adrenal adenoma. Pelvis X-Ray 12/30/17 0704 Signed Impressions: CONCLUSION: Bilateral hip osteoarthritis. No acute abnormality. Lumbar Spine CT 12/30/17 0000 Signed Impressions: CONCLUSION: 1. There are no findings identified to indicate osteomyelitis, as questioned. 2. However, there is a fracture of the right lateral and posterior aspect of t he L1 vertebral body. It is associated with mild height loss and the appearance could be an acute fracture. Suggest correlating for pain in this location. MRI could confirm that it is acute, if clinically needed. There is no significant retropulsion or spinal canal narrowing at this level. 3. Otherwise, there are mild degenerative changes at multiple levels, as above . No spinal canal stenosis is seen. (Stefany Booker) Attending Statement Last 48 hours Impressions Chest X-Ray 12/30/17 1216 Signed Impressions: CONCLUSION: No acute cardiopulmonary process. Abdomen/Pelvis CT 12/30/17 07 Signed Impressions: CONCLUSION: 1. Numerous scattered nonobstructing stones of both kidneys without appreciabl e change. No evidence of acute obstructive uropathy. 2. The nonspecific hypodensity of the spleen has been present for many years a nd is presumably benign. It is a couple millimeters larger since 2016. 3. Stable right adrenal adenoma. Pelvis X-Ray 12/30/17 0704 Signed Impressions: CONCLUSION: Bilateral hip osteoarthritis. No acute abnormality. Lumbar Spine CT 12/30/17 0000 Signed Impressions: CONCLUSION: 1. There are no findings identified to indicate osteomyelitis, as questioned. 2. However, there is a fracture of the right lateral and posterior aspect of t he L1 vertebral body. It is associated with mild height loss and the appearance could be an acute fracture. Suggest correlating for pain in this location. MRI could confirm that it is acute, if clinically needed. There is no significant retropulsion or spinal canal narrowing at this level. 3. Otherwise, there are mild degenerative changes at multiple levels, as above . No spinal canal stenosis is seen. neuro checks in a serial fashion. The alternatives of treatment has been discussed. I recommend an MRI of the lumbar spine. I will defer further recommendations to upon completion of the workup. he is in extreme pain. Consideration will be given to a kyphoplasty. We have discussed the details including the [id number] details of the surgical procedure, its indications, alternatives, risks, and potential complications. Risks and potential complications include, but are not limited to, infection, blood loss, CSF leak, partial or complete loss of sight in one or both eyes, paresis, paralysis, permanent pain or difficulty swallowing, loss of bowel or bladder function, complications from anesthesia, blood clot, stroke, myocardial infarction, or even . Pulmonary. Continue aggressive pulmonary toilette, nasotracheal suction, and breathing treatments with nebulizers. Daily PT and OT Renal. Continue to monitor closely urine output, BUN and creatinine Endocrine. Continue to Monitor serial Acu checks and SSI as needed in detail ID continue to monitor for signs of infection Continue Protonix for stress ulcer prophylaxis Continue Rodger hose and SCD's for DVT prophylaxis Further recommendations will be provided depending on the patient's clinical evaluation and follow up studies. Discussed with the patient and Dr Martin (Shahram Mota MD) Shahram Mota MD Dec 30, 2017 16:28 Stefany Booker Dec 30, 2017 16:58
[2017-12-30] MEDS ORDERED: VANCOMYCIN INJ 1,000 MG in SODIUM CHLOR 0.9% 250 ML INJ 250 ML IV ONE (17:15)
[2017-12-30] MEDS ORDERED: ceFAZolin 2 GM PREMIX 50 ML IV ONE (17:15)
--- NOTE | 2017-12-30 17:53 | RADRPT ---
EXAM DATE: 12/30/2017 5:38 PM EDT AGE/SEX: 62 years / Male INDICATIONS: Pain. CLINICAL DATA: This is the patient's initial encounter. Patient reports that signs and symptoms have been present for 3 days and indicates a pain score of 6/10. MEDICAL/SURGICAL HISTORY: Hypertension. Diabetes mellitus type II. . Kidney stones. COMPARISON: [facility] [place], CT LUMBAR SPINE W/O CONTRAST, 12/30/2017. . TECHNIQUE: Multiplanar, multisequence MRI of the lumbar spine was performed without contrast. Patie nt was scanned in a sitting position; neutral, flexion, and extension scans were performed in the sa gittal plane. FINDINGS: Sagittal T1, T2 and inversion recovery images confirmed bony edema in the L1 vertebral body with dimi nished T1 and increased T2 signal intensity characteristic of an acute or subacute fracture as suspec mel on CT. There is no retropulsed fragment, however. Marrow signal is normal throughout the remainin g lumbar vertebrae. Spinal canal is widely patent. Benign-appearing 1.5 cm cyst posteriorly in the mi dpole of the right kidney T12-L1: The thecal sac has a normal diameter. No evidence of disc bulge or protrusion. The neural foramina are patent bilaterally. L1-L2: The thecal sac has a normal diameter. No evidence of disc bulge or protrusion. The neural foramina are patent bilaterally. L2-L3: The thecal sac has a normal diameter. No evidence of disc bulge or protrusion. The neural foramina are patent bilaterally. L3-L4: The thecal sac has a normal diameter. No evidence of disc bulge or protrusion. The neural foramina are patent bilaterally. L4-L5: The thecal sac has a normal diameter. No evidence of disc bulge or protrusion. The neural foramina are patent bilaterally. L5-S1: The thecal sac has a normal diameter. No evidence of disc bulge or protrusion. The neural foramina are patent bilaterally. CONCLUSION: 1. Bony edema in the L1 vertebral body characteristic of an acute or subacute fracture as suspected on CT. 2. However, there is no retropulsed fragment. Spinal canal and neural foramina are patent throughout without nerve root compromise. Electronically signed by: Ajit Schumacher MD 12/30/2017 5:51 PM EDT
[2017-12-30] MEDS: GLIMEPIRIDE 2 MG TAB PO SCH (18:06)
[2017-12-30] MEDS: traMADol HCL 50 MG TAB PO SCH ×2 (18:08→22:12)
[2017-12-30] MEDS: INSULIN ASPART SUPPLEMENTAL SCALE SQ SCH ×2 (18:10→22:44)
[2017-12-30] MEDS: SODIUM CHLOR 0.9% 1000 ML INJ 1,000 ML IV SCH (18:12)
[2017-12-30 19:13] LABS: TROPONIN I LESS THAN 0.02 NG/ML (0.02-0.05)
[2017-12-30] MEDS: SODIUM CHLORIDE 0.9% FLUSH 10 ML FLUSH IV FLUSH SCH (21:00)
[2017-12-30] MEDS: CHLORHEXIDINE GLUCONATE 4% SOLN 120 ML BTL TOP SCH ×2 (21:00)
[2017-12-30] MEDS: METOPROLOL TARTRATE 50 MG TAB PO SCH (22:11)
[2017-12-31] VITALS (7 sets, daily range): BP systolic 125–145; BP diastolic 69–77; PULSE 80–119; RESP 17–20; TEMP 97.5–98.6; O2SAT 93–95
[2017-12-31 00:22] LABS: TROPONIN I LESS THAN 0.02 NG/ML (0.02-0.05)
[2017-12-31] MEDS ORDERED: ceFAZolin 2 GM PREMIX 50 ML IV ONE (06:00)
[2017-12-31] MEDS: traMADol HCL 50 MG TAB PO SCH (06:49)
[2017-12-31] MEDS: SODIUM CHLOR 0.9% 1000 ML INJ 1,000 ML IV SCH ×3 (06:49→18:02)
[2017-12-31 06:50] LABS: AUTOMATED NEUTROPHIL # 4.3 TH/MM3 (1.8-7.7); BASOPHIL % 0.5 % (0.0-2.0); EOSINOPHIL # 0.1 TH/MM3 (0-0.4); EOSINOPHIL % 2.5 % (0.0-4.0); HEMATOCRIT 41.8 % (39.0-51.0); HEMOGLOBIN 14.2 GM/DL (13.0-17.0); LYMPH % 15.6 % (9.0-44.0); LYMPHOCYTE # 0.9 TH/MM3 (1.0-4.8); MEAN CELL VOLUME 83.5 FL (80.0-100.0); MEAN CORPUSCULAR HEMOGLOBIN 28.5 PG (27.0-34.0); MEAN CORPUSCULAR HGB CONC 34.1 % (32.0-36.0); MEAN PLATELET VOLUME 8.6 FL (7.0-11.0); MONO % 8.3 % (0.0-8.0); MONOCYTE # 0.5 TH/MM3 (0-0.9); NEUT % 73.1 % (16.0-70.0); PLATELET COUNT 188 TH/MM3 (150-450); RED CELL DISTRIBUTION WIDTH 14.2 % (11.6-17.2); WHITE BLOOD COUNT 5.8 TH/MM3 (4.0-11.0)
[2017-12-31 07:10] LABS: BICARBONATE 24.7 MEQ/L (21.0-32.0); CALCIUM 8.6 MG/DL (8.5-10.1); CREATININE 0.76 MG/DL (0.60-1.30)
[2017-12-31] MEDS: INSULIN ASPART SUPPLEMENTAL SCALE SQ SCH ×4 (08:00→20:44)
[2017-12-31] MEDS: GLIMEPIRIDE 2 MG TAB PO SCH ×2 (08:25→18:08)
[2017-12-31] MEDS: SODIUM CHLORIDE 0.9% FLUSH 10 ML FLUSH IV FLUSH SCH ×2 (08:25→20:42)
[2017-12-31] MEDS: METOPROLOL TARTRATE 50 MG TAB PO SCH ×2 (08:25→20:42)
[2017-12-31] MEDS: LISINOPRIL 20 MG TAB PO SCH (08:25)
[2017-12-31] MEDS: GABAPENTIN 300 MG CAP PO SCH ×4 (08:25→20:42)
[2017-12-31] MEDS: ASPIRIN 325 MG TAB PO SCH (08:26)
[2017-12-31] MEDS: ACETAMINOPHEN/HYDROcodone 325 MG/7.5 MG TAB PO PRN (08:30)
[2017-12-31] MEDS: HYDROCHLOROTHIAZIDE 50 MG TAB PO SCH (08:30)
[2017-12-31] MEDS ORDERED: PANTOPRAZOLE SOD 20 MG DELAYED RELEASE TAB PO SCH (09:00)
--- NOTE | 2017-12-31 11:02 | HHI.PR ---
Subjective Remarks Pt is planned for surgical repair of L1 vertebral fracture today with kyphoplasty Objective Vitals Vital Signs Date Time Temp Pulse Resp B/P (MAP) Pulse Ox O2 Delivery O2 Flow Rate FiO2 12/31/17 08:00 97.5 84 20 130/74 (92) 93 12/31/17 07:01 85 12/31/17 03:17 98.3 83 17 132/69 (90) 94 12/31/17 00:31 98.6 80 17 125/77 (93) 94 12/30/17 23:02 18 12/30/17 19:54 98.6 102 17 120/69 (86) 93 12/30/17 14:57 106 12/30/17 14:30 97.7 104 20 142/72 (95) 95 12/30/17 13:52 12/30/17 12:04 93 18 152/78 (102) 97 Room Air 12/31/17 12/31/17 01/01/18 15:00 23:00 07:00 Intake Total 800 ml Balance 800 ml Intake Oral 200 ml IV Total 600 ml Result Diagram: 12/31/1725 12/31/1725 Other Results Laboratory Tests Test 12/30/17 07:23 12/30/17 09:02 12/30/17 12:26 12/30/17 18:15 White Blood Count 9.4 TH/MM3 Red Blood Count 5.54 MIL/MM3 Hemoglobin 15.6 GM/DL Hematocrit 45.8 % Mean Corpuscular Volume 82.7 FL Mean Corpuscular Hemoglobin 28.1 PG Mean Corpuscular Hemoglobin Concent 34.0 % Red Cell Distribution Width 14.0 % Platelet Count 223 TH/MM3 Mean Platelet Volume 8.2 FL Neutrophils (%) (Auto) 83.9 % Lymphocytes (%) (Auto) 9.9 % Monocytes (%) (Auto) 4.8 % Eosinophils (%) (Auto) 1.1 % Basophils (%) (Auto) 0.3 % Neutrophils # (Auto) 7.9 TH/MM3 Lymphocytes # (Auto) 0.9 TH/MM3 Monocytes # (Auto) 0.5 TH/MM3 Eosinophils # (Auto) 0.1 TH/MM3 Basophils # (Auto) 0.0 TH/MM3 CBC Comment DIFF FINAL Differential Comment Erythrocyte Sedimentation Rate 12 mm/hr Prothrombin Time 10.7 SEC Prothromb Time International Ratio 1.1 RATIO Activated Partial Thromboplast Time 26.5 SEC Blood Urea Nitrogen 24 MG/DL Creatinine 1.13 MG/DL Random Glucose 137 MG/DL Total Protein 7.1 GM/DL Albumin 3.7 GM/DL Calcium Level 8.9 MG/DL Magnesium Level 1.9 MG/DL Alkaline Phosphatase 88 U/L Aspartate Amino Transf (AST/SGOT) 22 U/L Alanine Aminotransferase (ALT/SGPT) 28 U/L Total Bilirubin 0.5 MG/DL Sodium Level 141 MEQ/L Potassium Level 3.1 MEQ/L Chloride Level 104 MEQ/L Carbon Dioxide Level 27.1 MEQ/L Anion Gap 10 MEQ/L Estimat Glomerular Filtration Rate 65 ML/MIN Troponin I LESS THAN 0.02 NG/ML LESS THAN 0.02 NG/ML LESS THAN 0.02 NG/ML C-Reactive Protein 0.80 MG/DL Lipase 142 U/L Urine Color YELLOW Urine Turbidity CLEAR Urine pH 6.0 Urine Specific [place] 1.018 Urine Protein NEG mg/dL Urine Glucose (UA) NEG mg/dL Urine Ketones NEG mg/dL Urine Occult Blood NEG Urine Nitrite NEG Urine Bilirubin NEG Urine Urobilinogen LESS THAN 2.0 MG/DL Urine Leukocyte Esterase NEG Urine RBC LESS THAN 1 /hpf Urine WBC LESS THAN 1 /hpf Urine Mucus FEW /lpf Microscopic Urinalysis Comment CULT NOT INDICATED Total Creatine Kinase 792 U/L 760 U/L Creatine Kinase MB 2.2 NG/ML 1.7 NG/ML Creatine Kinase MB % 0.3 % 0.2 % Test 12/30/17 23:25 12/31/17 06:25 Total Creatine Kinase 629 U/L Creatine Kinase MB 1.4 NG/ML Creatine Kinase MB % 0.2 % Troponin I LESS THAN 0.02 NG/ML White Blood Count 5.8 TH/MM3 Red Blood Count 5.00 MIL/MM3 Hemoglobin 14.2 GM/DL Hematocrit 41.8 % Mean Corpuscular Volume 83.5 FL Mean Corpuscular Hemoglobin 28.5 PG Mean Corpuscular Hemoglobin Concent 34.1 % Red Cell Distribution Width 14.2 % Platelet Count 188 TH/MM3 Mean Platelet Volume 8.6 FL Neutrophils (%) (Auto) 73.1 % Lymphocytes (%) (Auto) 15.6 % Monocytes (%) (Auto) 8.3 % Eosinophils (%) (Auto) 2.5 % Basophils (%) (Auto) 0.5 % Neutrophils # (Auto) 4.3 TH/MM3 Lymphocytes # (Auto) 0.9 TH/MM3 Monocytes # (Auto) 0.5 TH/MM3 Eosinophils # (Auto) 0.1 TH/MM3 Basophils # (Auto) 0.0 TH/MM3 CBC Comment DIFF FINAL Differential Comment Blood Urea Nitrogen 15 MG/DL Creatinine 0.76 MG/DL Random Glucose 131 MG/DL Calcium Level 8.6 MG/DL Sodium Level 144 MEQ/L Potassium Level 3.3 MEQ/L Chloride Level 108 MEQ/L Carbon Dioxide Level 24.7 MEQ/L Anion Gap 11 MEQ/L Estimat Glomerular Filtration Rate 103 ML/MIN Imaging Last Impressions Chest X-Ray 12/30/17 1216 Signed Impressions: CONCLUSION: No acute cardiopulmonary process. Abdomen/Pelvis CT 12/30/17 0715 Signed Impressions: CONCLUSION: 1. Numerous scattered nonobstructing stones of both kidneys without appreciabl e change. No evidence of acute obstructive uropathy. 2. The nonspecific hypodensity of the spleen has been present for many years a nd is presumably benign. It is a couple millimeters larger since 2016. 3. Stable right adrenal adenoma. Pelvis X-Ray 12/30/17 0704 Signed Impressions: CONCLUSION: Bilateral hip osteoarthritis. No acute abnormality. Lumbar Spine MRI 12/30/17 0000 Signed Impressions: CONCLUSION: 1. Bony edema in the L1 vertebral body characteristic of an acute or subacute fracture as suspected on CT. 2. However, there is no retropulsed fragment. Spinal canal and neural foramina are patent throughout without nerve root compromise. Lumbar Spine CT 12/30/17 0000 Signed Impressions: CONCLUSION: 1. There are no findings identified to indicate osteomyelitis, as questioned. 2. However, there is a fracture of the right lateral and posterior aspect of t he L1 vertebral body. It is associated with mild height loss and the appearance could be an acute fracture. Suggest correlating for pain in this location. MRI could confirm that it is acute, if clinically needed. There is no significant retropulsion or spinal canal narrowing at this level. 3. Otherwise, there are mild degenerative changes at multiple levels, as above . No spinal canal stenosis is seen. A/P Problem List: (1) Fracture of L1 vertebra ICD Codes: S32.019A - Unspecified fracture of first lumbar vertebra, initial encounter for closed fracture Plan: - Pt is a 62 y/o male with Diabetes mellitus, PALOMA, HTN, hx of nephrolithiasis and chronic back pain. - He presented to the ED at [facility] [place] [facility] with a history of right-sided low back pain that he reports began at approximately 4:30 AM on 12/30/17. He reports that yesterday he helped someone move a pool table and pushed it across the floor. He did not have pain initially after helping move the pool table or yesterday evening. Around 4:30AM this morning he got up to go to the bathroom at which time he had sudden onset of severe right-sided back pain. He reports that the pain is sharp and is located in the right flank/right buttock area. It is exacerbated by any movement. - In the ED the pt underwent evaluation with CT of the lumbar spine which revealed a fracture of the right lateral and posterior aspect of the L1 vertebral body, it is associated with mild height loss and the appearance could be an acute fracture. - Pt was evaluated by Neurosurgery in the ED and recommended observation admission for evaluation with MRI and pain management. - MRI lumbar spine (12/30/17) --> Bony edema in the L1 vertebral body characteristic of an acute or subacute fracture as suspected on CT. However, there is no retropulsed fragment. Spinal canal and neural foramina are patent throughout without nerve root compromise. - Neurosurgery is following and pt is planned for surgical intervention today - Pain control PRN - PT evaluation tomorrow - Supportive care - DVT prophylaxis (2) Chest pain ICD Codes: R07.9 - Chest pain, unspecified Status: Acute Plan: - While in the ED this afternoon he complained of some mild chest discomfort. - Serial troponin I were negative. - Total CK was elevated at 792 --> 760 --> 629 and CK-MB is 2.2 --> 1.7 --> 1.4. - Pt given ASA - No further chest discomfort (3) Type 2 diabetes mellitus with peripheral neuropathy ICD Codes: E11.42 - Type 2 diabetes mellitus with peripheral neuropathy Status: Chronic Plan: - Decreased home dose of Amaryl to 2mg po BID - NovoLog SSI - Accu checks (4) HTN (hypertension) ICD Codes: I10 - Hypertension Status: Chronic Plan: - Home meds continued - Monitor Assessment and Plan Patient examined. Assessment and plan formulated with Mary Morejon PA-C. I agree with the above. Problem Qualifiers (1) Chest pain: Qualified Codes: R07.9 - Chest pain, unspecified Mary Morejon Dec 31, 2017 11:02 Jose Francisco Martin DO Jan 05, 2018 22:33
[2017-12-31] MEDS ORDERED: ACETAMINOPHEN 1000 MG/100 ML 100 ML IV ONE (11:14)
[2017-12-31] MEDS ORDERED: ARTIFICIAL TEARS OPTH OINT 3.5 APPLIC/3.5 GM TUBO ONE (11:14)
[2017-12-31] MEDS ORDERED: POTASSIUM CHLORIDE 20 MEQ CONTROLLED RELEASE TAB PO ONE (11:15)
[2017-12-31] MEDS ORDERED: BUPIVACAINE/EPINEPHRINE 0.5% PF 10 ML VIAL ONE (11:21)
[2017-12-31] MEDS ORDERED: SODIUM CHLORID 0.9% 500 ML IV PRN (11:30)
[2017-12-31] MEDS ORDERED: METOPROLOL TARTRATE 25 MG TAB PO PRN (11:30)
[2017-12-31] MEDS ORDERED: LACTATED RINGER'S 1000 ML IV PRN (11:30)
[2017-12-31] MEDS ORDERED: CHLORHEXIDINE GLUCONATE 2 % 1 PACK (2 CLOTHS) TOPICAL PRN (11:30)
[2017-12-31] MEDS ORDERED: POVIDONE IODINE 5% (ANTISEPSIS KIT) 4 APPLICATIONS EACH NARE PRN (11:30)
[2017-12-31] MEDS ORDERED: DEXAMETHASONE SOD PHOS 4 MG/ML VIAL IV ONE (12:00)
[2017-12-31] MEDS ORDERED: NEOSTIGMINE 5 MG/5 ML SYRINGE IV PUSH ONE (12:00)
[2017-12-31] MEDS ORDERED: PHENYLEPH/NS 1000 MCG/10 ML SYR IV ONE (12:00)
[2017-12-31] MEDS ORDERED: GLYCOPYRROLATE 1 MG/5 ML SYRINGE IV PUSH ONE (12:00)
[2017-12-31] MEDS ORDERED: ROCURONIUM INJ 50 MG/5 ML SYRINGE IV PUSH ONE (12:00)
[2017-12-31] MEDS ORDERED: ePHEDrine/NS 25 MG/5 ML SYRINGE IV ONE (12:00)
[2017-12-31] MEDS ORDERED: LACTATED RINGER'S 1000 ML INJ 1,000 ML IV ONE (12:00)
[2017-12-31] MEDS ORDERED: PROPOFOL 200 MG/20 ML AMP IV ONE (12:00)
[2017-12-31] MEDS ORDERED: LIDOCAINE HCL 1% PF 5 ML SYRINGE OTHER ONE (12:00)
[2017-12-31] MEDS ORDERED: ONDANSETRON HCL 4 MG/2 ML VIAL IV ONE (12:00)
[2017-12-31] MEDS ORDERED: IOHEXOL 350 MG/ML 50 ML BTL (for RAD DIAG) OTHER ONE (12:52)
[2017-12-31] MEDS ORDERED: DO NOT ADM ANY ANTICOAGULANT DRUGS PRN (13:50)
[2017-12-31] MEDS ORDERED: MIDAZOLAM HCL 2 MG/2 ML VIAL ONE (13:59)
[2017-12-31] MEDS ORDERED: MENTHOL LOZENGE BUCCAL PRN (14:15)
[2017-12-31] MEDS ORDERED: ACETAMINOPHEN/HYDROcodone 325 MG/10 MG TAB PO PRN (14:15)
[2017-12-31] MEDS ORDERED: CYCLOBENZAPRINE HCL 10 MG TAB PO PRN (14:15)
[2017-12-31] MEDS ORDERED: ACETAMINOPHEN 325 MG TAB PO PRN (14:15)
[2017-12-31] MEDS ORDERED: cloNIDine HCL 0.1 MG TAB PO/NG PRN (14:15)
[2017-12-31] MEDS ORDERED: RESP: ALBUTEROL 2.5 MG/3 ML NEB (PRN) INH (14:15)
[2017-12-31] MEDS ORDERED: MAGNESIUM HYDROXIDE SUSP 30 ML CUP PO PRN (14:15)
[2017-12-31] MEDS ORDERED: ONDANSETRON ODT 4 MG TAB PO PRN (14:15)
--- NOTE | 2017-12-31 14:29 | PD.OP ---
Operative Report Date of Surgery: Dec 31, 2017 Preoperative Diagnosis: L1 compression fracture Postoperative Diagnosis: L1 compression fracture Procedure: L1 kyphoplasty Surgeon: Shahram Mota Alley Tender(s): BOBBI Operation and Findings: INDICATIONS FOR THE PROCEDURE Mr Ba is a 62 year-old male who presented with intractable pain related to a L1 compression fracture He was in unbearable pain and a kyphoplasty was indicated as the most appropriate form of treatment. The [id number] details of the procedure, indications, alternatives, risks and potential complications were fully discussed with the patient. The patient fully understood. All The questions were answered. No guarantees were given. The patient voiced requesting the procedure and provided informed consents. The patient was offered the alternative of delaying the procedure and continuing with nonsurgical management. DETAILS OF THE SURGICAL PROCEDURE The patient was brought to the operating room and after the induction of general anesthesia, endotracheal intubation was performed. A Craig catheter and bilateral LESTER hose and sequential compression devices were placed and kept throughout the procedure. The patient was positioned prone on the Maykel table over gel rods. All pressure points were carefully padded with egg crate mattress. The eyes were tapped shut after ointment was applied by the anesthesiologist to prevent corneal abrasion. A Didi hugger was placed over the expossed lower body to maintain control of the core body temperature. The lumbar region was prepped and draped in the usual sterile fashion. The C-arms were brought to the field and simultaneous AP and lateral x-rays were obtained. The levels were carefully counted and the pedicles were marked over the skin. An entry point was selected 1 centimeter superior and 1 centimeter lateral to the pedicle of L1. Two small incisions were outlined on the skin and infiltrated with 1% lidocaine with epinephrine in 1:100,000 dilution. Initially, two small skin incisions were made with a #11 blade. Then , Jamshidi needles were carefully advanced to the entrance of the pedicle, and then into the vertebral body under continuous fluoroscopic guidance. K-wires were placed inside the vertebral body of L1 and the needles were carefully removed. A drill was used to create a trough into the vertebral body to insert a cannula. Once the cannula was located through the pedicle, the drill was removed and bilateral balloons were inserted into the vertebral body for vertebral augmentation. A careful expansion of the balloon under continuous fluoroscopic guidance and manometric evaluation allowed expansion of the vertebral body. Then, the balloons were deflated and carefully removed and the voids created in the vertebral body were filled with bone cement under fluoroscopic visualization. A very good expansion of the vertebral bodies was achieved without evidence of extravasation or cement or other complications. The cannulas were then removed. The incisions were closed using a single stitch at each incision. Dermabond was applied to the skin. At the end of the procedure, the sponge, needle, instrument counts correct. The estimated blood loss as minimal. No intraoperative complications occurred. The patient received prophylactic antibiotics. The patient was then extubated and transferred to the recovery room in stable condition. Shahram Mota MD Dec 31, 2017 14:29
[2017-12-31] MEDS ORDERED: MORPHINE SULFATE 4 MG/ML INJ IV PUSH PRN ×2 (15:00)
--- NOTE | 2017-12-31 15:55 | EKG ---
Date Performed: 12/30/2017 Time Performed: 12:28:37 PTAGE: 62 years EKG: Sinus rhythm RIGHT BUNDLE BRANCH BLOCK ABNORMAL ECG Since the PREVIOUS TRACING , no significant change noted PREVIOUS TRACIN12/30/2017 07.14 DOCTOR: Jody Varela Interpretating Date/Time 12/31/2017 15:54:43
--- NOTE | 2017-12-31 15:56 | EKG ---
Date Performed: 12/30/2017 Time Performed: 18:00:25 PTAGE: 62 years EKG: Sinus rhythm RIGHT BUNDLE BRANCH BLOCK ABNORMAL ECG INTERPRETATION BASED ON A DEFAULT AGE OF 40 YEARS Since the PREVIOUS TRACING , no significant change noted PREVIOUS TRACIN12/30/2017 @12.28 DOCTOR: Jody Varela Interpretating Date/Time 12/31/2017 15:55:36
[2017-12-31] MEDS: ceFAZolin 2 GM PREMIX 50 ML IV SCH ×2 (15:57→22:17)
--- NOTE | 2017-12-31 16:20 | EKG ---
Date Performed: 12/31/2017 Time Performed: 00:29:59 PTAGE: 62 years EKG: Sinus rhythm Right bundle branch block ABNORMAL ECG PREVIOUS TRACING : 12/30/2017 18.00 No significant serial change since the most recent tracing. DOCTOR: Jody Varela Interpretating Date/Time 12/31/2017 16:19:53
--- NOTE | 2017-12-31 16:44 | RADRPT ---
EXAM DATE: 12/31/2017 3:03 PM EDT AGE/SEX: 62 years / Male INDICATIONS: L1 kyphoplasty. CLINICAL DATA: This is the patient's subsequent encounter. Patient reports that signs and symptoms h ave been present for 4 - 6 days and indicates a pain score of Nonresponsive. MEDICAL/SURGICAL HISTORY: Hypertension. Diabetes mellitus type II. Kidney stones None. COMPAR[place] [facility] [place] [facility] (AP & LAT), 08/01/2012. . FINDINGS: 2 spot fluoroscopic images obtained in the operating room during a procedure document cement material within the L1 vertebral body in a pattern characteristic of kyphoplasty. No extruded cement is ident ified. CONCLUSION: Images document changes from L1 kyphoplasty. Electronically signed by: Aaron José MD 12/31/2017 4:43 PM EDT
[2017-12-31] MEDS: ACETAMINOPHEN/HYDROcodone 325 MG/10 MG TAB PO PRN (18:25)
[2017-12-31] MEDS: DOCUSATE SODIUM 100 MG CAP PO SCH (20:42)
[2017-12-31] MEDS: CHLORHEXIDINE GLUCONATE 4% SOLN 120 ML BTL TOP SCH ×2 (21:00)
[2018-01-01 01:25] VITALS: BP 120/68; PULSE 89; RESP 20; TEMP 98.4; O2SAT 95
[2018-01-01 04:00] VITALS: PULSE 83
[2018-01-01 04:47] VITALS: BP 134/72; PULSE 92; RESP 20; TEMP 98.4; O2SAT 95
[2018-01-01] MEDS: ceFAZolin 2 GM PREMIX 50 ML IV SCH (06:06)
[2018-01-01] MEDS: GLIMEPIRIDE 2 MG TAB PO SCH ×2 (06:13→12:54)
[2018-01-01 08:00] VITALS: BP 155/66; PULSE 104; RESP 18; TEMP 97.8; O2SAT 96
[2018-01-01] MEDS: INSULIN ASPART SUPPLEMENTAL SCALE SQ SCH ×2 (08:00→12:00)
[2018-01-01] MEDS: GABAPENTIN 300 MG CAP PO SCH ×2 (08:45→12:55)
[2018-01-01] MEDS: DOCUSATE SODIUM 100 MG CAP PO SCH (08:45)
[2018-01-01] MEDS: ASPIRIN 325 MG TAB PO SCH (08:46)
[2018-01-01] MEDS: LISINOPRIL 20 MG TAB PO SCH (08:47)
[2018-01-01] MEDS: METOPROLOL TARTRATE 50 MG TAB PO SCH (08:47)
[2018-01-01] MEDS ORDERED: PANTOPRAZOLE SOD 40 MG DELAYED RELEASE TAB PO SCH (09:00)
[2018-01-01] MEDS: ACETAMINOPHEN/HYDROcodone 325 MG/10 MG TAB PO PRN (09:10)
[2018-01-01] MEDS: HYDROCHLOROTHIAZIDE 50 MG TAB PO SCH (09:10)
[2018-01-01] MEDS: SODIUM CHLOR 0.9% 1000 ML INJ 1,000 ML IV SCH (09:11)
[2018-01-01] MEDS: SODIUM CHLORIDE 0.9% FLUSH 10 ML FLUSH IV FLUSH SCH (09:11)
[2018-01-01] MEDS ORDERED: MAGN30S PO (10:48)
[2018-01-01] MEDS ORDERED: DOCU1CAP39 PO (10:48)
[2018-01-01] MEDS ORDERED: INSULIN DETEMIR 100 UNITS/ML VIAL SQ SCH (11:00)
[2018-01-01] MEDS ORDERED: POTASSIUM CHLORIDE 20 MEQ CONTROLLED RELEASE TAB PO ONE (11:00)
[2018-01-01 12:00] VITALS: BP 136/64; PULSE 80; RESP 18; TEMP 98.1; O2SAT 98
--- NOTE | 2018-01-01 12:32 | HHI.DS ---
Discharge Summary Admission Date Dec 30, 2017 at 12:41 Discharge Date: Jan 01, 2018 Admitting Diagnosis L spine fracture, chest pain (1) Fracture of L1 vertebra Diagnosis: Principal ICD Codes: S32.019A - Unspecified fracture of first lumbar vertebra, initial encounter for closed fracture (2) Chest pain Diagnosis: Principal ICD Codes: R07.9 - Chest pain, unspecified Status: Acute (3) Type 2 diabetes mellitus with peripheral neuropathy Diagnosis: Secondary ICD Codes: E11.42 - Type 2 diabetes mellitus with peripheral neuropathy Status: Chronic (4) HTN (hypertension) Diagnosis: Secondary ICD Codes: I10 - Hypertension Status: Chronic Consultants Dr. Mota, Neurosurgery Procedures L1 Kyphoplasty 12/31/[address] Mota Brief History Mr. Ba is a 62 y/o male with Diabetes mellitus, PALOMA, HTN, hx of nephrolithiasis and chronic back pain. He presented to the ED at [facility] – [place] with a history of right-sided low back pain that he reports began at approximately 4: 30AM on 12/29/17. The patient reports that he has a history of chronic back pain and has been receiving epidural steroid injections and is also prescribed tramadol which he usually takes 3 times per day. He reports that he last received an epidural steroid injection on 12/04/17 and follows with pain management for this. He reports that yesterday he helped someone move a pool table and pushed it across the floor. He did not have pain initially after helping move the pool table and felt normal yesterday evening. This morning around 4:30AM he got up to go to the bathroom at which time he had sudden onset of severe right-sided back pain. He reports that the pain is sharp and is located in the right flank/right buttock area. It is exacerbated by any movement. He denies having any radiation of the pain down into the scrotum or down into his legs. No reported weakness or paresthesias of his legs. The patient reports last taking tramadol for his pain at 4:30 AM yesterday but it has not helped. In the ED the pt underwent evaluation with CT of the lumbar spine which revealed a fracture of the right lateral and posterior aspect of the L1 vertebral body, it is associated with mild height loss and the appearance could be an acute fracture. Pt was evaluated by Neurosurgery in the ED and recommended observation admission for evaluation with MRI and pain management. Pt reports that around 2 weeks ago he had [place] curb. He hit his head and scraped his knees but there was no LOC. He denies any increased back pain after this fall. While in the ED this afternoon he complained of some mild chest discomfort, which lasted 5-10 minutes and resolved on its own. Pt felt like this began after receiving Zofran for nausea that he had been given. He denies any associated Vomiting, SOB or palpitations. He has had two troponin I check which were negative. His total CK was elevated at 792 and CK-MB is 2.2. Serial EKGs are ordered. CBC/BMP: 12/31/17 0625 12/31/17 0625 Significant Findings Laboratory Tests Test 12/30/17 07:23 12/30/17 09:02 12/30/17 12:26 12/30/17 18:15 Neutrophils (%) (Auto) 83.9 % (16.0-70.0) Neutrophils # (Auto) 7.9 TH/MM3 (1.8-7.7) Lymphocytes # (Auto) 0.9 TH/MM3 (1.0-4.8) Blood Urea Nitrogen 24 MG/DL (7-18) Random Glucose 137 MG/DL (74-106) Potassium Level 3.1 MEQ/L (3.5-5.1) Estimat Glomerular Filtration Rate 65 ML/MIN (>89) Troponin I LESS THAN 0.02 NG/ML LESS THAN 0.02 NG/ML LESS THAN 0.02 NG/ML C-Reactive Protein 0.80 MG/DL (0.00-0.30) Urine Mucus FEW /lpf (OCC) Total Creatine Kinase 792 U/L (39-308) 760 U/L (39-308) Test 12/30/17 23:25 12/31/17 06:25 Total Creatine Kinase 629 U/L (39-308) Troponin I LESS THAN 0.02 NG/ML Neutrophils (%) (Auto) 73.1 % (16.0-70.0) Monocytes (%) (Auto) 8.3 % (0.0-8.0) Lymphocytes # (Auto) 0.9 TH/MM3 (1.0-4.8) Random Glucose 131 MG/DL (74-106) Potassium Level 3.3 MEQ/L (3.5-5.1) Chloride Level 108 MEQ/L (98-107) Imaging Last Impressions Lumbar Spine X-Ray 12/31/17 0000 Signed Impressions: CONCLUSION: Images document changes from L1 kyphoplasty. Chest X-Ray 12/30/17 1216 Signed Impressions: CONCLUSION: No acute cardiopulmonary process. Abdomen/Pelvis CT 12/30/17 0715 Signed Impressions: CONCLUSION: 1. Numerous scattered nonobstructing stones of both kidneys without appreciabl e change. No evidence of acute obstructive uropathy. 2. The nonspecific hypodensity of the spleen has been present for many years a nd is presumably benign. It is a couple millimeters larger since 2016. 3. Stable right adrenal adenoma. Pelvis X-Ray 12/30/17 0704 Signed Impressions: CONCLUSION: Bilateral hip osteoarthritis. No acute abnormality. Lumbar Spine MRI 12/30/17 0000 Signed Impressions: CONCLUSION: 1. Bony edema in the L1 vertebral body characteristic of an acute or subacute fracture as suspected on CT. 2. However, there is no retropulsed fragment. Spinal canal and neural foramina are patent throughout without nerve root compromise. Lumbar Spine CT 12/30/17 0000 Signed Impressions: CONCLUSION: 1. There are no findings identified to indicate osteomyelitis, as questioned. 2. However, there is a fracture of the right lateral and posterior aspect of t he L1 vertebral body. It is associated with mild height loss and the appearance could be an acute fracture. Suggest correlating for pain in this location. MRI could confirm that it is acute, if clinically needed. There is no significant retropulsion or spinal canal narrowing at this level. 3. Otherwise, there are mild degenerative changes at multiple levels, as above . No spinal canal stenosis is seen. PE at Discharge GENERAL: This is a well-nourished, well-developed patient, in no apparent distress. CARDIOVASCULAR: Regular rate and rhythm RESPIRATORY: Clear to auscultation. Breath sounds equal bilaterally. GASTROINTESTINAL: Abdomen soft, non-tender, nondistended. Normal active bowel sounds MUSCULOSKELETAL: Extremities without clubbing, cyanosis, or edema. NEURO: Alert & Oriented x4 to person, place, time, situation. Moves all ext x4 Hospital Course Fracture of L1 vertebra - Pt is a 62 y/o male with Diabetes mellitus, PALOMA, HTN, hx of nephrolithiasis and chronic back pain. - He presented to the ED at [facility] – [place], [place] with a history of right-sided low back pain that he reports began at approximately 4:30 AM on 12/30/17. He reports that yesterday he helped someone move a pool table and pushed it across the floor. He did not have pain initially after helping move the pool table or yesterday evening. Around 4:30AM this morning he got up to go to the bathroom at which time he had sudden onset of severe right-sided back pain. He reports that the pain is sharp and is located in the right flank/right buttock area. It is exacerbated by any movement. - In the ED the pt underwent evaluation with CT of the lumbar spine which revealed a fracture of the right lateral and posterior aspect of the L1 vertebral body, it is associated with mild height loss and the appearance could be an acute fracture. - Pt was evaluated by Neurosurgery in the ED and recommended observation admission for evaluation with MRI and pain management. - MRI lumbar spine (12/30/17) --> Bony edema in the L1 vertebral body characteristic of an acute or subacute fracture as suspected on CT. However, there is no retropulsed fragment. Spinal canal and neural foramina are patent throughout without nerve root compromise. - S/P L1 kyphoplasty 12/31/[address] Mota - 01/01/18 Dr. Martin discussed the case with Dr. Mota, patient cleared for DC. Patient to wear TLSO brace when out of bed - Pain control PRN - PT consulted - Supportive care - DVT prophylaxis Chest pain - While in the ED this afternoon he complained of some mild chest discomfort. - Serial troponin I were negative.< 0.02 x 3 - Total CK was elevated at 792 --> 760 --> 629 and CK-MB is 2.2 --> 1.7 --> 1.4. - Pt given ASA - No further chest discomfort Type 2 diabetes mellitus with peripheral neuropathy - Decreased home dose of Amaryl to 2mg po BID - NovoLog SSI - Accu checks - 01/01/18 blood glucose elevated will increase Amaryl to 4 mg daily and add Levemir 15 units BID HTN (hypertension) - Home meds continued - Monitor CT abdomen/pelvis reviewed and revealed: 1. numerous scattered nonobstructing stones of both kidneys without appreciable change. No evidence of acute obstructive uropathy. 2. non-the nonspecific hypodensity of the spleen has been present for many years and is presumably benign. It is a couple millimeters larger in size since 2016. 3. stable right adrenal adenoma. Patient to follow with PCP Dr. Martin and Dr. Mota strongly recommend patient go to SNF for short term rehab after DC. Patient verbalizing understanding of risks and adamantly refuses SNF. Patient agreeable to DC home with HHC and home PT. Pt Condition on Discharge: Stable Discharge Disposition: Disch w/ Home Health Serv Discharge Instructions DIET: Follow Instructions for: Diabetic Diet Activities you can perform: Weight Bearing as Yojana Other Activity Instructions: must wear TLSO brace when out of bed Follow up Referrals: Neurosurgery - 1 Week with Shahram Mota MD PCP Follow-up - [address] Zenon Bocanegra New Medications: Hydrocodone-Acetaminophen ([place]) 5 Mg-325 Mg Tab 1 TAB PO Q6H PRN for PAIN, #15 TAB 0 Refills Docusate Sodium (Dok) 100 Mg Cap 100 MG PO BID for stool softener, #20 CAP Magnesium Hydroxide (Qc Milk of Magnesia) 400 Mg/5 Ml Noemi 30 ML PO DAILY PRN for CONSTIPATION for 10 Days, EACH 0 Refills Continued Medications: Baclofen (Baclofen) 10 Mg Tab 10 MG PO DAILY PRN for MUSCLE SPASM, TAB 0 Refills Gabapentin (Gabapentin) 300 Mg Cap 300 MG PO QID, #60 CAP 0 Refills Glimepiride (Amaryl) 4 Mg Tab 4 MG PO BID for take 30 min. prior to a meal, #60 TAB 6 Refills Take with breakfast or the first main meal Hydrochlorothiazide (Hydrochlorothiazide) 50 Mg Tab 50 MG PO DAILY, #60 TAB 0 Refills Insulin Human Isophane-Regular 70-30 Inj (Novolin 70-30 Inj) 1,000 Unit/10 Ml Vial 15 UNITS SQ BID for Blood Sugar Management, #10 ML 3 Refills Lisinopril (Lisinopril) 20 Mg Tab 20 MG PO DAILY, #30 TAB 0 Refills Metoprolol Tartrate (Metoprolol Tartrate) 50 Mg Tab 50 MG PO BID, #60 TAB 0 Refills Omeprazole (Omeprazole) 20 Mg Cap 20 MG PO DAILY, #90 CAP 3 Refills Discontinued Medications: Tramadol (Tramadol) 50 Mg Tab 50 MG PO Q6HR, TAB 0 Refills Additional Information Patient examined. Assessment and plan formulated with Harleen Raymond PA-C. I agree with the above. Harleen Raymond Jan 01, 2018 12:32 Jose Francisco Martin DO Jan 05, 2018 22:34
--- NOTE | 2018-01-01 12:34 | HHI.DCPOC ---
Discharge Care Plan Diagnosis: (1) Fracture of L1 vertebra (2) Back pain (3) Diabetes mellitus (4) HTN (hypertension) Goals to Promote Your Health * To prevent worsening of your condition and complications * To maintain your health at the optimal level Directions to Meet Your Goals Take your medications as prescribed Follow your dietary instruction Follow activity as directed Keep your appointments as scheduled Take your immunizations and boosters as scheduled If your symptoms worsen call your PCP, if no PCP go to Urgent Care Center or Emergency Room Smoking is Dangerous to Your Health. Avoid second hand smoke Call the 24-hour hour crisis hotline for domestic abuse at Harleen Raymond Jan 01, 2018 12:33
[2018-01-01] MEDS ORDERED: NORC5TAB PO (12:41)
--- NOTE | 2018-01-01 12:41 | HHI.FF ---
Face to Face Verification Diagnosis: (1) Fracture of L1 vertebra (2) HTN (hypertension) (3) Back pain (4) Diabetes mellitus Physical Therapy Order: Evaluate and Treat Home Health Nursing Order: Medical education Signs/symptoms of disease process Medication education-adverse effect I have seen patient Junior Ba on 01/01/18. My clinical findings support the need for the requested home health care services because: Ltd mobility - disease progression High risk of falls I certify that my clinical findings support that this patient is homebound because: Unsteady gait/balance Harleen Raymond Jan 01, 2018 12:41 Jose Francisco Martin DO Jan 01, 2018 12:42
--- NOTE | 2018-01-01 13:46 | HHI.NSPN ---
(Stefany Booker) Note Status Status: Progress Note (Stefany Booker) Interval History Interval History Mr. Ba 62-year-old male status post L1 kyphoplasty 12/31/2017. Patient is doing well, ambulating with physical therapy. (Stefany Booker) Labs, Micro, & Vital Signs Results Date Time Temp Pulse Resp B/P (MAP) Pulse Ox O2 Delivery O2 Flow Rate FiO2 01/01/18 12:00 98.1 80 18 136/64 (88) 98 01/01/18 08:00 97.8 104 18 155/66 (95) 96 01/01/18 04:47 98.4 92 20 134/72 (92) 95 01/01/18 04:00 83 01/01/18 01:25 98.4 89 20 120/68 (85) 95 12/31/17 21:00 111 12/31/17 20:21 98.3 119 20 145/75 (98) 95 12/31/17 16:00 97.9 94 20 140/74 (96) 93 12/31/17 15:15 98.3 93 17 141/71 (94) 96 Nasal Cannula 3 12/31/17 14:45 92 18 146/71 (96) 96 Nasal Cannula 3 12/31/17 14:30 93 17 127/63 (84) 96 Nasal Cannula 3 12/31/17 14:15 94 17 131/64 (86) 96 Nasal Cannula 3 12/31/17 14:00 94 17 133/64 (87) 96 Nasal Cannula 3 12/31/17 13:49 98.2 104 17 128/65 (86) 94 Nasal Cannula 3 Constitutional Vital Signs Date Time Temp Pulse Resp B/P (MAP) Pulse Ox O2 Delivery O2 Flow Rate FiO2 01/01/18 12:00 98.1 80 18 136/64 (88) 98 01/01/18 08:00 97.8 104 18 155/66 (95) 96 01/01/18 04:47 98.4 92 20 134/72 (92) 95 01/01/18 04:00 83 01/01/18 01:25 98.4 89 20 120/68 (85) 95 12/31/17 21:00 111 12/31/17 20:21 98.3 119 20 145/75 (98) 95 12/31/17 16:00 97.9 94 20 140/74 (96) 93 12/31/17 15:15 98.3 93 17 141/71 (94) 96 Nasal Cannula 3 12/31/17 14:45 92 18 146/71 (96) 96 Nasal Cannula 3 12/31/17 14:30 93 17 127/63 (84) 96 Nasal Cannula 3 12/31/17 14:15 94 17 131/64 (86) 96 Nasal Cannula 3 12/31/17 14:00 94 17 133/64 (87) 96 Nasal Cannula 3 12/31/17 13:49 98.2 104 17 128/65 (86) 94 Nasal Cannula 3 (Stefany Booker) Physical Exam Mr. Ba is in no acute distress Neuro: awake, alert. Cranial nerve: pupils equal, round, and reactive to light. Extra-ocular movements are intact. Facial motor are normal and symmetrical. Other cranial nerves are intact. Neck is soft and supple Wound clean and dry. Motor: moves all major muscle groups of lower extremities well (Stefany Booker) Medications Current Medications Current Medications Medications (Trade) Dose Ordered Sig/Edith Route PRN Reason Start Time Stop Time Status Last Admin Dose Admin Sodium Chloride (NS Flush) 2 ml UNSCH PRN IV FLUSH FLUSH AFTER USING IV ACCESS 12/30/17 12:45 Sodium Chloride (NS Flush) 2 ml BID IV FLUSH 12/30/17 21:00 01/01/18 09:11 Naloxone HCl (Narcan Inj) 0.4 mg UNSCH PRN IV PUSH SEE LABEL COMMENTS 12/30/17 12:45 Magnesium Hydroxide (Milk Of Magnesia Liq) 30 ml Q12H PRN PO Mild constipation 12/30/17 12:45 Insulin Aspart (NovoLOG SUPPLEMENTAL SCALE) 1 ACHS SLIDING SCALE SQ 12/30/17 17:00 01/01/18 12:00 Aspirin (Aspirin) 325 mg DAILY PO 12/31/17 09:00 01/01/18 08:46 Gabapentin (Neurontin) 300 mg QID PO 12/30/17 13:00 01/01/18 12:55 Hydrochlorothiazide (Hydrodiuril) 50 mg DAILY PO 12/31/17 09:00 01/01/18 09:10 Lisinopril (Prinivil) 20 mg DAILY PO 12/31/17 09:00 01/01/18 08:47 Metoprolol Tartrate (Lopressor) 50 mg BID PO 12/30/17 21:00 01/01/18 08:47 Glimepiride (Amaryl) 2 mg BIDAC PO 12/30/17 16:00 01/01/18 12:54 Dextrose (D50w (Vial) Inj) 50 ml UNSCH PRN IV PUSH HYPOGLYCEMIA - SEE COMMENTS 12/30/17 13:00 Glucagon (Glucagon Inj) 1 mg UNSCH PRN OTHER HYPOGLYCEMIA-SEE COMMENTS 12/30/17 13:00 Chlorhexidine Gluconate (Hibiclens 4% Top Soln) 1 applic HS TOP 12/30/17 21:00 01/01/18 21:01 12/30/17 21:00 Lactated Ringer's 1,000 ml @ 30 mls/hr Q24H PRN IV SEE LABEL COMMENTS 12/31/17 11:30 01/03/18 11:29 Sodium Chloride 500 ml @ 30 mls/hr [id number] PRN IV SEE LABEL COMMENTS 12/31/17 11:30 01/03/18 11:29 Metoprolol Tartrate (Lopressor) 25 mg SOUND PRINTER PRN PO SEE LABEL COMMENTS 12/31/17 11:30 01/03/18 11:29 Povidone Iodine (Betadine 5% Antisepsis Kit) 1 applic SOUND PRINTER PRN EACH NARE SEE LABEL COMMENTS 12/31/17 11:30 01/03/18 11:29 Chlorhexidine Gluconate (Chlorhexidine 2% Cloth) 3 pack SOUND PRINTER PRN TOPICAL SEE LABEL COMMENTS 12/31/17 11:30 01/03/18 11:29 Sodium Chloride 1,000 ml @ 100 mls/hr Q10H IV 12/31/17 14:10 01/01/18 09:11 Docusate Sodium (Colace) 100 mg BID PO 12/31/17 21:00 01/01/18 08:45 Magnesium Hydroxide (Milk Of Magnesia Liq) 30 ml DAILY PRN PO CONSTIPATION 12/31/17 14:15 Pantoprazole Sodium (Protonix) 40 mg DAILY PO 01/01/18 09:00 01/01/18 08:46 Ondansetron HCl (Zofran Odt) 4 mg Q6H PRN PO NAUSEA OR VOMITING 12/31/17 14:15 12/31/17 15:45 Acetaminophen/ Hydrocodone Bitart ([place] 10-325 Mg) 1 tab Q4H PRN PO PAIN SCALE 1 TO 5 12/31/17 14:15 Acetaminophen/ Hydrocodone Bitart ([place] 10-325 Mg) 2 tab Q4H PRN PO PAIN SCALE 6 TO 10 12/31/17 14:15 01/01/18 09:10 Morphine Sulfate (Morphine Inj) 2 mg Q2H PRN IV PUSH PAIN SCALE 1 TO 6 12/31/17 15:00 Morphine Sulfate (Morphine Inj) 4 mg Q2H PRN IV PUSH PAIN SCALE 7 TO 10 12/31/17 15:00 Cyclobenzaprine HCl (Flexeril) 10 mg Q8H PRN PO MUSCLE SPASM 12/31/17 14:15 Clonidine (Catapres) 0.1 mg Q6H PRN PO/NG SYS BP GREATER THAN 170 MMHG 12/31/17 14:15 Acetaminophen (Tylenol) 650 mg Q4H PRN PO TEMPERATURE > 101.5 F 12/31/17 14:15 Menthol ([place]mer) 1 lozenge UNSCH PRN BUCCAL SORE THROAT 12/31/17 14:15 Albuterol Sulfate (Albuterol Neb) 2.5 mg Q4HR NEB PRN INH WHEEZING 12/31/17 14:15 Miscellaneous Information ([facility] [place] [facility] ALL NURSING DEPARTME... UNSCH PRN .XX SEE LABEL COMMENTS 12/31/17 13:50 01/01/18 13:49 Insulin Detemir (Levemir Inj) 15 units Q12HR SQ 01/01/18 11:00 (Stefany Booker) Medical Decision Making MDM Remarks 62 y/o male s/p L1 kyphoplasty 12/31/17 (Stefany Booker) Plan Plan Remarks pain improved, PT TLSO when out of bed, clear to dc today (Stefany Booker) Attending Statement The exam, history, and the medical decision-making described in the above note were completed with the assistance of the mid-level provider. I reviewed and agree with the findings presented. I attest that I had a [id number] encounter with the patient on the same day, and personally performed and documented my assessment and findings in the medical record. (Shahram Mota MD) Stefany Booker Jan 01, 2018 13:46 Shahram Mota MD Jan 08, 2018 08:45
== END 2018-01-01 14:32 | disposition home health service (06) ==
LOC: NEPC 06:25 → NEDA 12:41 → NEPHCDU 13:43 → N06B 12-31 12:41 → N05B 12-31 15:20
PROVIDERS: ADMIT Hospitalist; ATTEND Hospitalist
DX: S32.010A Wedge compression fracture of first lumbar vertebra, initial encounter for closed fracture (principal); R07.9 Chest pain, unspecified; I10 Essential (primary) hypertension; E11.42 Type 2 diabetes mellitus with diabetic polyneuropathy; E87.6 Hypokalemia; E78.5 Hyperlipidemia, unspecified; D35.01 Benign neoplasm of right adrenal gland; G47.33 Obstructive sleep apnea (adult) (pediatric); K21.9 Gastro-esophageal reflux disease without esophagitis; M47.9 Spondylosis, unspecified; I45.10 Unspecified right bundle-branch block; M16.0 Bilateral primary osteoarthritis of hip; G89.29 Other chronic pain; I25.2 Old myocardial infarction; Z79.84 Long term (current) use of oral hypoglycemic drugs; Z79.82 Long term (current) use of aspirin; Z85.828 Personal history of other malignant neoplasm of skin; Z87.442 Personal history of urinary calculi; Z87.891 Personal history of nicotine dependence; Z83.3 Family history of diabetes mellitus
CPT/HCPCS: 01936; 22514; 71045; 72100; 72131; 72148; 72170; 74176; 80048; 80053; 81001; 82550; 82552; 82948; 83690; 83735; 84484; 85025; 85610; 85652; 85730; 86140; 93005; 96361; 96365; 96366; 96368; 96372; 96375; 96376; 97163; 99285; G0378; G8987; G8988; J0131; J0690; J1100; J1815; J2250; J2270; J2370; J2405; J2710; J3010; J3370; J7030; J7050; J7120; L0200; L0484; Q9967